=== PATIENT | female | born 1965 | race Caucasian/White ===

== ENCOUNTER 2017-03-23 05:59 | Observation (INO) ==
--- NOTE | 2017-03-23 06:30 | Emergency Department Note ---
Disposition Clinical Impression: Chest pain Qualifiers: Chest pain type: unspecified Qualified Code(s): R07.9 - Chest pain, unspecified Syncope Qualifiers: Syncope type: unspecified Qualified Code(s): R55 - Syncope and collapse Disposition: Still a Patient Condition: Fair Referrals: Suzanne Vincent CNP [Primary Care Provider] - Forms: ED Satisfaction Letter Chest Pain HPI - General Chief Complaint: ED Chest Pain Stated Complaint: CP, decreased LOC Time Seen by Provider: 03/23/17 06:03 Source: patient, EMS Mode of arrival: EMS Limitations: no limitations, altered mental status Vital Signs Reviewed: Yes Nursing Notes Reviewed: Yes - History of Present Illness HPI Narrative: 52-year-old female presents via EMS for concerns of syncope as well as chest pain. Patient states that she was working. EMS provided the history stating that the patient had a presumed witnessed collapse. Patient was complaining of chest pain around the time of the collapse. It was unclear whether the patient' s pain was prior to passing out or following passing out. Patient reports substernal chest pressure with radiation to her left arm. No pleuritic component. No diaphoresis. No vomiting. Patient states she had the stomach flu over the past couple days. Patient does have a remote history of breast cancer. No active cancers. No history of DVTs or PEs. Patient denies any abdominal pain. Patient denies history of syncope. Concerns of the patient is confused and not acting appropriately. Patient also reports a headache. Denies any extremity weaknesses or change in sensation. Severity scale (1-10): 7 - Related Data Home Medications Medication Instructions Recorded Confirmed Naproxen Sodium [Aleve] 220 mg PO BID PRN 05/02/16 12/13/16 Previous Rx's Medication Instructions Recorded HYDROcodone/Acet 5/325 mg [[place] 1 tab PO Q6H PRN #20 tab 12/13/16 5-325 mg] Allergies Allergy/AdvReac Type Severity Reaction Status Date / Time nitroglycerin Allergy See Verified 12/13/16 09:33 Comments citalopram AdvReac Nausea Verified 12/13/16 09:33 prednisone AdvReac See Verified 12/13/16 09:33 Comments All systems ED: reviewed and negative except as stated. Constitutional: Reports: as per HPI. Denies: fever Eyes: Reports: as per HPI ENT ED: Reports: as per HPI Cardiovascular: Reports: as per HPI, chest pain Respiratory: Reports: as per HPI. Denies: cough, dyspnea, sputum production Gastrointestinal: Reports: as per HPI. Denies: abdominal pain, nausea, vomiting Genitourinary: Reports: as per HPI Musculoskeletal: Reports: as per HPI Integumentary: Reports: as per HPI Neurological: Reports: as per HPI Psychiatric: Reports: as per HPI Endocrine: Reports: as per HPI Hematological/Lymphatic: Reports: as per HPI Chest Pain PMH - Past Medical History Medical history: Reports: other Surgical history: Reports: appendectomy, breast surgery, cholecystectomy, hysterectomy Psychiatric history: Reports: no psych history - Social History Smoking Status: Never smoker Alcohol use: Reports: none Drug use: Reports: none Physical Exam - General Limitations: no limitations General appearance: alert, in no apparent distress - Head Head exam: atraumatic, normocephalic, normal inspection - Eye Eye exam: Present: normal appearance, PERRL, EOMI - ENT ENT exam: normal exam, normal oropharynx, mucous membranes moist - Neck Neck exam: Present: normal inspection, trachea midline - Chest Chest inspection: Present: normal inspection, symmetric chest wall rise - Respiratory Respiratory exam: Present: normal lung sounds bilaterally. Absent: respiratory distress - Cardiovascular Cardiovascular exam: Present: regular rate, normal rhythm. Absent: systolic murmur - Abdominal Exam Abdominal exam: Present: soft, Non-Tender - Extremities Exam Extremities exam: Present: normal inspection. Absent: pedal edema - Back Exam Back exam: Present: normal inspection. Absent: tenderness - Neurological Exam Neurological exam: Present: alert, CN II-XII intact. Absent: motor sensory deficit - Expanded Neurological Exam Patient oriented to: Present: person, place. Absent: time Speech: Present: fluid speech Cranial nerves: EOM function (II, III, IV, ): Normal, facial sensation (V): Normal, facial palsy (VII): Normal, spinal accessory function (XI): Normal, tongue deviation (XII): Normal Motor strength - LUE: 5/5 Motor strength - RUE: 5/5 Motor strength - LLE: 5/5 Motor strength - RLE: 5/5 Coma Scale Eye Opening: Spontaneous Coma Scale Motor Response: Obeys Commands Coma Scale Verbal Response: Confused Coma Scale Total: 14 - Skin Skin exam: Present: warm, dry, intact, normal color Course Course Narrative: Patient seen and examined upon EMS arrival. Patient complaining of chest pain. Patient does have a history concerning for syncope. Patient does have remote history of breast cancer. Patient will get a cardiopulmonary evaluation with EKG, chest x-ray as well as urine and urine drug screen. Patient will also get a d-dimer given the history of breast cancer and question of syncopal episode. Patient will be given aspirin following neuro imaging to ensure that there is no cranial bleeding. Patient will also require admission for further cardiopulmonary monitoring and evaluation. Vital Signs Temperature 98.2 F 03/23/17 05:59 Pulse Rate 91 03/23/17 05:59 Respiratory Rate 20 03/23/17 05:59 Blood Pressure 137/94 03/23/17 05:59 O2 Sat by Pulse Oximetry 97 03/23/17 05:59 Temperature 98.2 F 03/23/17 05:59 Pulse Rate 91 03/23/17 05:59 Respiratory Rate 20 03/23/17 05:59 Blood Pressure 137/94 03/23/17 05:59 O2 Sat by Pulse Oximetry 97 03/23/17 05:59 Oxygen Delivery Oxygen Delivery Room Air Chest Pain - Lab Data Result diagrams: 03/23/17 06:05 03/23/17 06:05 Lab Results 03/23/17 03/23/17 03/23/17 Range/Units 06:03 06:05 06:05 WBC 6.1 (4.3-11.1) K/mcL RBC 5.26 H (3.82-4.97) M/mcL Hgb 14.1 (11.5-15.4) g/dL Hct 43.3 (35.3-44.9) % MCV 82.3 L (83.0-100.0) fL MCH 26.8 L (28.0-33.3) pg MCHC 32.6 (31.6-35.5) g/dL RDW 15.4 H (11.5-14.5) % Plt Count 321 (140-400) K/mcL MPV 9.9 (9.4-12.4) fL Immature Gran % 0.2 (0-4) % Seg Neutrophils % 46.9 % Lymphocytes % 28.9 % Monocytes % 10.8 % Eosinophils % 11.2 % Basophils % 2.0 % Neutrophils # 2.9 (1.6-8.9) K/mcL Lymphocytes # 1.8 (0.6-4.6) K/mcL Monocytes # 0.7 (0.0-1.3) K/mcL Eosinophils # 0.7 H (0.0-0.6) K/mcL Basophils # 0.1 (0.0-0.2) K/mcL Sodium 137 (136-145) mEq/L Potassium 3.8 (3.5-5.1) mEq/L Chloride 104 (98-107) mEq/L Carbon Dioxide 25 (23-29) mEq/L BUN 15 (6-20) mg/dL Creatinine 0.89 (0.60-1.20) mg/dL Est GFR ( Amer) > 60 (> 60) Est GFR (Non-Af Amer) > 60 (> 60) BUN/Creatinine Ratio 17 (6-26) Glucose 87 (70-105) mg/dL POC Glucose 96 H (58-89) Calculated Osmolality 284 (280-300) Calcium 10.2 (8.6-10.3) mg/dL Troponin I (< 0.04) ng/mL B-Natriuretic Peptide (Less than 100) pg/mL Urine Color (Yellow) Urine Clarity (Clear) Urine pH (5.0-8.0) pH Units Ur Specific [place] (1.010-1.025) Urine Protein (Neg-Trace) mg/dL Urine Glucose (UA) (Normal) mg/dL Urine Ketones (Negative) mg/dL Urine Blood (Negative) Urine Nitrite (Negative) Urine Bilirubin (Negative) Urine Urobilinogen (Normal) mg/dL Ur Leukocyte Esterase (Negative) Urine Microscopic RBC (0-3) per hpf Urine Microscopic WBC (0-3) per hpf Ur Squamous Epith Cells (None-Few) per lpf Urine Bacteria (None-Few) per hpf Hyaline Casts (None-Few) per lpf Urine Opiates Screen (Bpjdua=839) ng/mL Ur Barbiturates Screen (Ttcgjg=301) ng/mL Ur Phencyclidine Scrn (Cutoff=25) ng/mL Ur Amphetamines Screen (Ayxuqs=0147) ng/mL U Benzodiazepines Scrn (Bsusxm=794) ng/mL Urine Cocaine Screen (Cutoff= 300) ng/mL U Marijuana (THC) Screen (Cutoff = 50) ng/mL 0103/23/17 03/23/17 Range/Units 06:05 06:05 06:34 WBC (4.3-11.1) K/mcL RBC (3.82-4.97) M/mcL Hgb (11.5-15.4) g/dL Hct (35.3-44.9) % MCV (83.0-100.0) fL MCH (28.0-33.3) pg MCHC (31.6-35.5) g/dL RDW (11.5-14.5) % Plt Count (140-400) K/mcL MPV (9.4-12.4) fL Immature Gran % (0-4) % Seg Neutrophils % % Lymphocytes % % Monocytes % % Eosinophils % % Basophils % % Neutrophils # (1.6-8.9) K/mcL Lymphocytes # (0.6-4.6) K/mcL Monocytes # (0.0-1.3) K/mcL Eosinophils # (0.0-0.6) K/mcL Basophils # (0.0-0.2) K/mcL Sodium (136-145) mEq/L Potassium (3.5-5.1) mEq/L Chloride (98-107) mEq/L Carbon Dioxide (23-29) mEq/L BUN (6-20) mg/dL Creatinine (0.60-1.20) mg/dL Est GFR ( Amer) (> 60) Est GFR (Non-Af Amer) (> 60) BUN/Creatinine Ratio (6-26) Glucose (70-105) mg/dL POC Glucose (58-89) Calculated Osmolality (280-300) Calcium (8.6-10.3) mg/dL Troponin I < 0.03 (< 0.04) ng/mL B-Natriuretic Peptide 26 (Less than 100) pg/mL Urine Color (Yellow) Urine Clarity (Clear) Urine pH (5.0-8.0) pH Units Ur Specific [place] (1.010-1.025) Urine Protein (Neg-Trace) mg/dL Urine Glucose (UA) (Normal) mg/dL Urine Ketones (Negative) mg/dL Urine Blood (Negative) Urine Nitrite (Negative) Urine Bilirubin (Negative) Urine Urobilinogen (Normal) mg/dL Ur Leukocyte Esterase (Negative) Urine Microscopic RBC (0-3) per hpf Urine Microscopic WBC (0-3) per hpf Ur Squamous Epith Cells (None-Few) per lpf Urine Bacteria (None-Few) per hpf Hyaline Casts (None-Few) per lpf Urine Opiates Screen Negative (Ercmcq=408) ng/mL Ur Barbiturates Screen Negative (Ofluhe=605) ng/mL Ur Phencyclidine Scrn Negative (Cutoff=25) ng/mL Ur Amphetamines Screen Negative (Sgzerw=7251) ng/mL U Benzodiazepines Scrn Negative (Uvsymp=853) ng/mL Urine Cocaine Screen Negative (Cutoff= 300) ng/mL U Marijuana (THC) Screen Negative (Cutoff = 50) ng/mL 03/23/17 Range/Units 06:34 WBC (4.3-11.1) K/mcL RBC (3.82-4.97) M/mcL Hgb (11.5-15.4) g/dL Hct (35.3-44.9) % MCV (83.0-100.0) fL MCH (28.0-33.3) pg MCHC (31.6-35.5) g/dL RDW (11.5-14.5) % Plt Count (140-400) K/mcL MPV (9.4-12.4) fL Immature Gran % (0-4) % Seg Neutrophils % % Lymphocytes % % Monocytes % % Eosinophils % % Basophils % % Neutrophils # (1.6-8.9) K/mcL Lymphocytes # (0.6-4.6) K/mcL Monocytes # (0.0-1.3) K/mcL Eosinophils # (0.0-0.6) K/mcL Basophils # (0.0-0.2) K/mcL Sodium (136-145) mEq/L Potassium (3.5-5.1) mEq/L Chloride (98-107) mEq/L Carbon Dioxide (23-29) mEq/L BUN (6-20) mg/dL Creatinine (0.60-1.20) mg/dL Est GFR ( Amer) (> 60) Est GFR (Non-Af Amer) (> 60) BUN/Creatinine Ratio (6-26) Glucose (70-105) mg/dL POC Glucose (58-89) Calculated Osmolality (280-300) Calcium (8.6-10.3) mg/dL Troponin I (< 0.04) ng/mL B-Natriuretic Peptide (Less than 100) pg/mL Urine Color Yellow (Yellow) Urine Clarity Cloudy A (Clear) Urine pH 7.0 (5.0-8.0) pH Units Ur Specific [place] 1.009 L (1.010-1.025) Urine Protein Negative (Neg-Trace) mg/dL Urine Glucose (UA) Normal (Normal) mg/dL Urine Ketones Negative (Negative) mg/dL Urine Blood Negative (Negative) Urine Nitrite Negative (Negative) Urine Bilirubin Negative (Negative) Urine Urobilinogen Normal (Normal) mg/dL Ur Leukocyte Esterase Moderate H (Negative) Urine Microscopic RBC 0-3 (0-3) per hpf Urine Microscopic WBC 15-30 H (0-3) per hpf Ur Squamous Epith Cells Many H (None-Few) per lpf Urine Bacteria Few (None-Few) per hpf Hyaline Casts None Seen (None-Few) per lpf Urine Opiates Screen (Kkpaik=957) ng/mL Ur Barbiturates Screen (Znnqaw=966) ng/mL Ur Phencyclidine Scrn (Cutoff=25) ng/mL Ur Amphetamines Screen (Krppyn=2311) ng/mL U Benzodiazepines Scrn (Nmmgcx=793) ng/mL Urine Cocaine Screen (Cutoff= 300) ng/mL U Marijuana (THC) Screen (Cutoff = 50) ng/mL - EKG Data EKG attestation: Yes I reviewed and interpreted this EKG. EKG shows normal: sinus rhythm Rate: normal Rhythm: NSR [place]/QRS: normal Q waves: III, aVR T wave inversions noted in: aVR, v1 Interpretation: no acute changes, unchanged when compared to prior tracing (date ) S.B.A.R. - S.B.A.RMilli Situation: Demographics Background: Presenting Complaint Assessment: Vital Signs, Course and respsone to treatment, Patient/Family Expectation Recommendation: Barrier(s) to disposition, Recommendation based on pending studies, treatments, or consults S.B.A.R. Report Given to: Dr. Melissa HudsonB.AKeenan Repor Time: 07:00 Attestation Statement - Attestation Attestation: I, Ramiro Morse MD, personally evaluated this patient and discussed their management with the resident physician. I reviewed the resident's note and agree with the documented findings, medical decision making, and plan of care. 52-year-old female presents to the emergency department by ambulance after she had an episode of syncope and collapse while at work just prior to arrival. Patient apparently developed some chest pain and then collapsed and was unresponsive. Since then she has been confused and disoriented and not acting right. She does complain of headache. She does not really remember the syncopal episode. Patient is very slow to respond and keeps her eyes closed and will not make eye contact. She answers some questions appropriately but then asked what is going on and where she had. She continues to complain of some mid substernal chest pain which she describes as sharp and stabbing like a knife in it hurts worse to breathe. She complains of feeling short of breath. On examination patient is a well-developed well-nourished well-appearing female in no acute distress. She is alert but seems mildly confused. No cyanosis or diaphoresis. Some tenderness palpation over the anterior chest wall. Breath sounds are clear and equal bilaterally. Heart regular rate and rhythm. Abdomen soft and nontender with normal bowel sounds. No gross focal motor or sensory deficits noted. EKG normal. Labs, chest x-ray, and head CT ordered. At shift change patient is being signed out to the oncoming dayshift team, Dr. Torres and Dr. Jack.
[2017-03-23 06:35] LABS: Basophils # 0.1 K/mcL (0.0-0.2); Eosinophils # 0.7 K/mcL (0.0-0.6); Eosinophils % 11.2 %; Hematocrit 43.3 % (35.3-44.9); Hemoglobin 14.1 g/dL (11.5-15.4); Immature Granulocytes % 0.2 % (0-4); Lymphocytes # 1.8 K/mcL (0.6-4.6); Lymphocytes % 28.9 %; Mean Corpuscular HGB Conc 32.6 g/dL (31.6-35.5); Mean Corpuscular Hemoglobin 26.8 pg (28.0-33.3); Mean Corpuscular Volume 82.3 fL (83.0-100.0); Mean Platelet Volume 9.9 fL (9.4-12.4); Monocytes # 0.7 K/mcL (0.0-1.3); Monocytes % 10.8 %; Neutrophils # 2.9 K/mcL (1.6-8.9); Platelet Count 321 K/mcL (140-400); Red Blood Count 5.26 M/mcL (3.82-4.97); Red Cell Distribution Width 15.4 % (11.5-14.5); Segmented Neutrophils % 46.9 %
[2017-03-23 06:36] LABS: BUN/Creatinine Ratio 17 (6-26); Blood Urea Nitrogen 15 mg/dL (6-20); Calcium 10.2 mg/dL (8.6-10.3); Carbon Dioxide 25 mEq/L (23-29); Chloride 104 mEq/L (98-107); Glucose 87 mg/dL (70-105); Osmolality,Calculated 284 (280-300); Potassium 3.8 mEq/L (3.5-5.1); Sodium 137 mEq/L (136-145); eGFR For African Americans > 60 (> 60); eGFR For Non-African Americans > 60 (> 60)
[2017-03-23 06:46] LABS: Bilirubin,Urine Negative (Negative); Blood,Urine Negative (Negative); Clarity,Urine Cloudy (Clear); Color,Urine Yellow (Yellow); Glucose,Urine (UA) Normal (Normal); Ketones,Urine Negative (Negative); Leukocyte Esterase,Urine Moderate (Negative); Nitrite,Urine Negative (Negative); Protein,Urine Negative (Neg-Trace); Specific Gravity,Urine 1.009 (1.010-1.025); Urobilinogen,Urine Normal (Normal)
[2017-03-23 06:48] LABS: Amphetamine Screen,Urine Negative ng/mL (Cutoff=1000); Bacteria,Urine Few per hpf (None-Few); Barbiturate Screen,Urine Negative ng/mL (Cutoff=200); Benzodiazepines Screen,Urine Negative ng/mL (Cutoff=200); Cannabinoid Screen,Urine Negative ng/mL (Cutoff = 50); Cocaine Screen,Urine Negative ng/mL (Cutoff= 300); Hyaline Casts,Urine None Seen per lpf (None-Few); Opiate Screen,Urine Negative ng/mL (Cutoff=300); Phencyclidine Screen,Urine Negative ng/mL (Cutoff=25); RBC,Urine 0-3 per hpf (0-3); Squamous Epithelial Cell,Urine Many per lpf (None-Few); WBC,Urine 15-30 per hpf (0-3)
--- NOTE | 2017-03-23 07:13 | Emergency Department Note ---
Disposition Clinical Impression: Chest pain Qualifiers: Chest pain type: unspecified Qualified Code(s): R07.9 - Chest pain, unspecified Syncope Qualifiers: Syncope type: unspecified Qualified Code(s): R55 - Syncope and collapse Disposition: Still a Patient Condition: Fair Referrals: Suzanne Vincent CNP [Primary Care Provider] - Forms: ED Satisfaction Letter General Adult HPI - General Chief complaint: ED Chest Pain Stated complaint: CP, decreased LOC Time Seen by Provider: 03/23/17 06:03 Source: patient, EMS Mode of arrival: EMS Limitations: no limitations - History of Present Illness Pain Scale: 7 - Related Data Home Medications Medication Instructions Recorded Confirmed Naproxen Sodium [Aleve] 220 mg PO BID PRN 05/02/16 12/13/16 Previous Rx's Medication Instructions Recorded HYDROcodone/Acet 5/325 mg [[place] 1 tab PO Q6H PRN #20 tab 12/13/16 5-325 mg] Allergies Allergy/AdvReac Type Severity Reaction Status Date / Time nitroglycerin Allergy See Verified 12/13/16 09:33 Comments citalopram AdvReac Nausea Verified 12/13/16 09:33 prednisone AdvReac See Verified 12/13/16 09:33 Comments Constitutional: Reports: as per HPI. Denies: fever Eyes: Reports: as per HPI ENT ED: Reports: as per HPI Cardiovascular: Reports: as per HPI, chest pain Respiratory: Reports: as per HPI. Denies: cough, dyspnea, sputum production Gastrointestinal: Reports: as per HPI. Denies: abdominal pain, nausea, vomiting Genitourinary: Reports: as per HPI Musculoskeletal: Reports: as per HPI Integumentary: Reports: as per HPI Neurological: Reports: as per HPI Psychiatric: Reports: as per HPI Endocrine: Reports: as per HPI Hematological/Lymphatic: Reports: as per HPI Past Medical History - Past Medical History Medical history: Reports: other Surgical history: Reports: appendectomy, breast surgery, cholecystectomy, hysterectomy Psychiatric history: Reports: no psych history - Social History Smoking Status: Never smoker Smokeless Tobacco Status: No Alcohol use: Reports: none Drug use: Reports: none Physical Exam - General Limitations: no limitations General appearance: alert, in no apparent distress Course Vital Signs Temperature 98.2 F 03/23/17 05:59 Pulse Rate 91 03/23/17 05:59 Respiratory Rate 20 03/23/17 05:59 Blood Pressure 137/94 03/23/17 05:59 O2 Sat by Pulse Oximetry 97 03/23/17 05:59 Temperature 98.2 F 03/23/17 05:59 Pulse Rate 91 03/23/17 05:59 Respiratory Rate 20 03/23/17 05:59 Blood Pressure 137/94 03/23/17 05:59 O2 Sat by Pulse Oximetry 97 03/23/17 05:59 Oxygen Delivery Oxygen Delivery Room Air Medical Decision Making - Lab Data Result diagrams: 03/23/17 06:05 03/23/17 06:05 Lab Results 03/23/17 03/23/17 03/23/17 Range/Units 06:03 06:05 06:05 WBC 6.1 (4.3-11.1) K/mcL RBC 5.26 H (3.82-4.97) M/mcL Hgb 14.1 (11.5-15.4) g/dL Hct 43.3 (35.3-44.9) % MCV 82.3 L (83.0-100.0) fL MCH 26.8 L (28.0-33.3) pg MCHC 32.6 (31.6-35.5) g/dL RDW 15.4 H (11.5-14.5) % Plt Count 321 (140-400) K/mcL MPV 9.9 (9.4-12.4) fL Immature Gran % 0.2 (0-4) % Seg Neutrophils % 46.9 % Lymphocytes % 28.9 % Monocytes % 10.8 % Eosinophils % 11.2 % Basophils % 2.0 % Neutrophils # 2.9 (1.6-8.9) K/mcL Lymphocytes # 1.8 (0.6-4.6) K/mcL Monocytes # 0.7 (0.0-1.3) K/mcL Eosinophils # 0.7 H (0.0-0.6) K/mcL Basophils # 0.1 (0.0-0.2) K/mcL D-Dimer (0-500) ng/mLFEU Sodium 137 (136-145) mEq/L Potassium 3.8 (3.5-5.1) mEq/L Chloride 104 (98-107) mEq/L Carbon Dioxide 25 (23-29) mEq/L BUN 15 (6-20) mg/dL Creatinine 0.89 (0.60-1.20) mg/dL Est GFR ( Amer) > 60 (> 60) Est GFR (Non-Af Amer) > 60 (> 60) BUN/Creatinine Ratio 17 (6-26) Glucose 87 (70-105) mg/dL POC Glucose 96 H (58-89) Calculated Osmolality 284 (280-300) Calcium 10.2 (8.6-10.3) mg/dL Troponin I (< 0.04) ng/mL B-Natriuretic Peptide (Less than 100) pg/mL Urine Color (Yellow) Urine Clarity (Clear) Urine pH (5.0-8.0) pH Units Ur Specific [place] (1.010-1.025) Urine Protein (Neg-Trace) mg/dL Urine Glucose (UA) (Normal) mg/dL Urine Ketones (Negative) mg/dL Urine Blood (Negative) Urine Nitrite (Negative) Urine Bilirubin (Negative) Urine Urobilinogen (Normal) mg/dL Ur Leukocyte Esterase (Negative) Urine Microscopic RBC (0-3) per hpf Urine Microscopic WBC (0-3) per hpf Ur Squamous Epith Cells (None-Few) per lpf Urine Bacteria (None-Few) per hpf Hyaline Casts (None-Few) per lpf Urine Opiates Screen (Vbpciz=704) ng/mL Ur Barbiturates Screen (Cggzmb=144) ng/mL Ur Phencyclidine Scrn (Cutoff=25) ng/mL Ur Amphetamines Screen (Jomjnc=5586) ng/mL U Benzodiazepines Scrn (Nkvrfu=314) ng/mL Urine Cocaine Screen (Cutoff= 300) ng/mL U Marijuana (THC) Screen (Cutoff = 50) ng/mL 03/23/17 03/23/17 03/23/17 Range/Units 06:05 06:05 06:05 WBC (4.3-11.1) K/mcL RBC (3.82-4.97) M/mcL Hgb (11.5-15.4) g/dL Hct (35.3-44.9) % MCV (83.0-100.0) fL MCH (28.0-33.3) pg MCHC (31.6-35.5) g/dL RDW (11.5-14.5) % Plt Count (140-400) K/mcL MPV (9.4-12.4) fL Immature Gran % (0-4) % Seg Neutrophils % % Lymphocytes % % Monocytes % % Eosinophils % % Basophils % % Neutrophils # (1.6-8.9) K/mcL Lymphocytes # (0.6-4.6) K/mcL Monocytes # (0.0-1.3) K/mcL Eosinophils # (0.0-0.6) K/mcL Basophils # (0.0-0.2) K/mcL D-Dimer 729 H (0-500) ng/mLFEU Sodium (136-145) mEq/L Potassium (3.5-5.1) mEq/L Chloride (98-107) mEq/L Carbon Dioxide (23-29) mEq/L BUN (6-20) mg/dL Creatinine (0.60-1.20) mg/dL Est GFR ( Amer) (> 60) Est GFR (Non-Af Amer) (> 60) BUN/Creatinine Ratio (6-26) Glucose (70-105) mg/dL POC Glucose (58-89) Calculated Osmolality (280-300) Calcium (8.6-10.3) mg/dL Troponin I < 0.03 (< 0.04) ng/mL B-Natriuretic Peptide 26 (Less than 100) pg/mL Urine Color (Yellow) Urine Clarity (Clear) Urine pH (5.0-8.0) pH Units Ur Specific [place] (1.010-1.025) Urine Protein (Neg-Trace) mg/dL Urine Glucose (UA) (Normal) mg/dL Urine Ketones (Negative) mg/dL Urine Blood (Negative) Urine Nitrite (Negative) Urine Bilirubin (Negative) Urine Urobilinogen (Normal) mg/dL Ur Leukocyte Esterase (Negative) Urine Microscopic RBC (0-3) per hpf Urine Microscopic WBC (0-3) per hpf Ur Squamous Epith Cells (None-Few) per lpf Urine Bacteria (None-Few) per hpf Hyaline Casts (None-Few) per lpf Urine Opiates Screen (Liyhdi=539) ng/mL Ur Barbiturates Screen ([place]=865) ng/mL Ur Phencyclidine Scrn (Cutoff=25) ng/mL Ur Amphetamines Screen (Tfavnx=4424) ng/mL U Benzodiazepines Scrn (Tmnwex=528) ng/mL Urine Cocaine Screen (Cutoff= 300) ng/mL U Marijuana (THC) Screen (Cutoff = 50) ng/mL 03/23/17 03/23/17 Range/Units 06:34 06:34 WBC (4.3-11.1) K/mcL RBC (3.82-4.97) M/mcL Hgb (11.5-15.4) g/dL Hct (35.3-44.9) % MCV (83.0-100.0) fL MCH (28.0-33.3) pg MCHC (31.6-35.5) g/dL RDW (11.5-14.5) % Plt Count (140-400) K/mcL MPV (9.4-12.4) fL Immature Gran % (0-4) % Seg Neutrophils % % Lymphocytes % % Monocytes % % Eosinophils % % Basophils % % Neutrophils # (1.6-8.9) K/mcL Lymphocytes # (0.6-4.6) K/mcL Monocytes # (0.0-1.3) K/mcL Eosinophils # (0.0-0.6) K/mcL Basophils # (0.0-0.2) K/mcL D-Dimer (0-500) ng/mLFEU Sodium (136-145) mEq/L Potassium (3.5-5.1) mEq/L Chloride (98-107) mEq/L Carbon Dioxide (23-29) mEq/L BUN (6-20) mg/dL Creatinine (0.60-1.20) mg/dL Est GFR ( Amer) (> 60) Est GFR (Non-Af Amer) (> 60) BUN/Creatinine Ratio (6-26) Glucose (70-105) mg/dL POC Glucose (58-89) Calculated Osmolality (280-300) Calcium (8.6-10.3) mg/dL Troponin I (< 0.04) ng/mL B-Natriuretic Peptide (Less than 100) pg/mL Urine Color Yellow (Yellow) Urine Clarity Cloudy A (Clear) Urine pH 7.0 (5.0-8.0) pH Units Ur Specific [place] 1.009 L (1.010-1.025) Urine Protein Negative (Neg-Trace) mg/dL Urine Glucose (UA) Normal (Normal) mg/dL Urine Ketones Negative (Negative) mg/dL Urine Blood Negative (Negative) Urine Nitrite Negative (Negative) Urine Bilirubin Negative (Negative) Urine Urobilinogen Normal (Normal) mg/dL Ur Leukocyte Esterase Moderate H (Negative) Urine Microscopic RBC 0-3 (0-3) per hpf Urine Microscopic WBC 15-30 H (0-3) per hpf Ur Squamous Epith Cells Many H (None-Few) per lpf Urine Bacteria Few (None-Few) per hpf Hyaline Casts None Seen (None-Few) per lpf Urine Opiates Screen Negative (Nlnzfo=584) ng/mL Ur Barbiturates Screen Negative (Ctsbei=770) ng/mL Ur Phencyclidine Scrn Negative (Cutoff=25) ng/mL Ur Amphetamines Screen Negative (Mfywlv=0657) ng/mL U Benzodiazepines Scrn Negative (Zjsnkz=788) ng/mL Urine Cocaine Screen Negative (Cutoff= 300) ng/mL U Marijuana (THC) Screen Negative (Cutoff = 50) ng/mL Attestation Statement - Attestation Attestation: Care assumed from Dr. Morse at [address] head, CT chest, reevaluation. The patient presents after a syncopal event at work. She is now confused. She is calm appearing on exam but states "where am I?" Labs reviewed by me. CT head and chest pending. Patient will likely require admission for observation and evaluation
--- NOTE | 2017-03-23 08:01 | Emergency Department Note ---
Disposition Clinical Impression: Chest pain Qualifiers: Chest pain type: unspecified Qualified Code(s): R07.9 - Chest pain, unspecified Syncope Qualifiers: Syncope type: unspecified Qualified Code(s): R55 - Syncope and collapse Disposition: Admitted As Inpatient Condition: Fair Referrals: Suzanne Vincent [facility] [Primary Care Provider] - Forms: ED Satisfaction Letter Time of Disposition: 08:27 General Adult HPI - General Chief complaint: ED Chest Pain Stated complaint: CP, decreased LOC Time Seen by Provider: 03/23/17 06:03 Source: patient, EMS Mode of arrival: EMS Limitations: no limitations - History of Present Illness Pain Scale: 10 - Related Data Home Medications Medication Instructions Recorded Confirmed No Known Home Drugs 03/23/17 03/23/17 Allergies Allergy/AdvReac Type Severity Reaction Status Date / Time nitroglycerin Allergy See Verified 12/13/16 09:33 Comments citalopram AdvReac Nausea Verified 12/13/16 09:33 prednisone AdvReac See Verified 12/13/16 09:33 Comments Constitutional: Reports: as per HPI. Denies: fever Eyes: Reports: as per HPI ENT ED: Reports: as per HPI Cardiovascular: Reports: as per HPI, chest pain Respiratory: Reports: as per HPI. Denies: cough, dyspnea, sputum production Gastrointestinal: Reports: as per HPI. Denies: abdominal pain, nausea, vomiting Genitourinary: Reports: as per HPI Musculoskeletal: Reports: as per HPI Integumentary: Reports: as per HPI Neurological: Reports: as per HPI Psychiatric: Reports: as per HPI Endocrine: Reports: as per HPI Hematological/Lymphatic: Reports: as per HPI Past Medical History - Past Medical History Medical history: Reports: other Surgical history: Reports: appendectomy, breast surgery, cholecystectomy, hysterectomy Psychiatric history: Reports: no psych history - Social History Smoking Status: Never smoker Smokeless Tobacco Status: No Alcohol use: Reports: none Drug use: Reports: none Physical Exam - General Limitations: no limitations General appearance: alert, in no apparent distress Course Course Narrative: Briefly patient care was signed out to the day physicians Dr. Torres and Dr. Guero Baez and Dr. Morse, the patient with an episode of syncope at work, unexplained and now since then she has been acting differently per her sister is at bedside, please see their documentation, had additional lab work she has had elevated d-dimer 700 so we will give a CT chest also pain head CT plan for admission for chest pain syncope - Reevaluation(s) Reevaluation #1: Hospitalist paged Time: 08:01 Reevaluation #2: Patient admitted a hospitalist Dr. Barahona added seizure precautions, patient given an aspirin no clear cause of syncope CT chest negative CT head negative, patient likely needs MRI imaging, she still not quite at her baseline but slightly more lucid than described by the night physicians, again see their documentation for history and physical exam patient be admitted for CV and chest pain, is currently chest pain-free with no ischemic changes on her EKG Time: 08:27 Vital Signs Temperature 98.2 F 03/23/17 05:59 Pulse Rate 91 03/23/17 05:59 Respiratory Rate 20 03/23/17 05:59 Blood Pressure 137/94 03/23/17 05:59 O2 Sat by Pulse Oximetry 97 03/23/17 05:59 Temperature 98.2 F 03/23/17 05:59 Pulse Rate 99 03/23/17 08:17 Respiratory Rate 17 03/23/17 08:17 Blood Pressure 120/87 03/23/17 08:17 O2 Sat by Pulse Oximetry 97 03/23/17 08:17 Oxygen Delivery Oxygen Delivery Room Air Medical Decision Making - Medical Records Medical records reviewed: Yes I reviewed the patient's medical records. - Lab Data Lab results reviewed: Yes I reviewed the patient's lab results. Result diagrams: 03/23/17 06:05 03/23/17 06:05 Lab Results 03/23/17 03/23/17 03/23/17 Range/Units 06:03 06:05 06:05 WBC 6.1 (4.3-11.1) K/mcL RBC 5.26 H (3.82-4.97) M/mcL Hgb 14.1 (11.5-15.4) g/dL Hct 43.3 (35.3-44.9) % MCV 82.3 L (83.0-100.0) fL MCH 26.8 L (28.0-33.3) pg MCHC 32.6 (31.6-35.5) g/dL RDW 15.4 H (11.5-14.5) % Plt Count 321 (140-400) K/mcL MPV 9.9 (9.4-12.4) fL Immature Gran % 0.2 (0-4) % Seg Neutrophils % 46.9 % Lymphocytes % 28.9 % Monocytes % 10.8 % Eosinophils % 11.2 % Basophils % 2.0 % Neutrophils # 2.9 (1.6-8.9) K/mcL Lymphocytes # 1.8 (0.6-4.6) K/mcL Monocytes # 0.7 (0.0-1.3) K/mcL Eosinophils # 0.7 H (0.0-0.6) K/mcL Basophils # 0.1 (0.0-0.2) K/mcL D-Dimer (0-500) ng/mLFEU Carboxyhemoglobin (0-5) % Sodium 137 (136-145) mEq/L Potassium 3.8 (3.5-5.1) mEq/L Chloride 104 (98-107) mEq/L Carbon Dioxide 25 (23-29) mEq/L BUN 15 (6-20) mg/dL Creatinine 0.89 (0.60-1.20) mg/dL Est GFR ( Amer) > 60 (> 60) Est GFR (Non-Af Amer) > 60 (> 60) BUN/Creatinine Ratio 17 (6-26) Glucose 87 (70-105) mg/dL POC Glucose 96 H (58-89) Calculated Osmolality 284 (280-300) Calcium 10.2 (8.6-10.3) mg/dL Troponin I (< 0.04) ng/mL B-Natriuretic Peptide (Less than 100) pg/mL Urine Color (Yellow) Urine Clarity (Clear) Urine pH (5.0-8.0) pH Units Ur Specific [place] (1.010-1.025) Urine Protein (Neg-Trace) mg/dL Urine Glucose (UA) (Normal) mg/dL Urine Ketones (Negative) mg/dL Urine Blood (Negative) Urine Nitrite (Negative) Urine Bilirubin (Negative) Urine Urobilinogen (Normal) mg/dL Ur Leukocyte Esterase (Negative) Urine Microscopic RBC (0-3) per hpf Urine Microscopic WBC (0-3) per hpf Ur Squamous Epith Cells (None-Few) per lpf Urine Bacteria (None-Few) per hpf Hyaline Casts (None-Few) per lpf Urine Opiates Screen (Wpimao=152) ng/mL Ur Barbiturates Screen (Krkygd=416) ng/mL Ur Phencyclidine Scrn (Cutoff=25) ng/mL Ur Amphetamines Screen (Khskue=8805) ng/mL U Benzodiazepines Scrn (Rmhbwc=580) ng/mL Urine Cocaine Screen (Cutoff= 300) ng/mL U Marijuana (THC) Screen (Cutoff = 50) ng/mL 03/23/17 03/23/17 03/23/17 Range/Units 06:05 06:05 06:05 WBC (4.3-11.1) K/mcL RBC (3.82-4.97) M/mcL Hgb (11.5-15.4) g/dL Hct (35.3-44.9) % MCV (83.0-100.0) fL MCH (28.0-33.3) pg MCHC (31.6-35.5) g/dL RDW (11.5-14.5) % Plt Count (140-400) K/mcL MPV (9.4-12.4) fL Immature Gran % (0-4) % Seg Neutrophils % % Lymphocytes % % Monocytes % % Eosinophils % % Basophils % % Neutrophils # (1.6-8.9) K/mcL Lymphocytes # (0.6-4.6) K/mcL Monocytes # (0.0-1.3) K/mcL Eosinophils # (0.0-0.6) K/mcL Basophils # (0.0-0.2) K/mcL D-Dimer 729 H (0-500) ng/mLFEU Carboxyhemoglobin (0-5) % Sodium (136-145) mEq/L Potassium (3.5-5.1) mEq/L Chloride (98-107) mEq/L Carbon Dioxide (23-29) mEq/L BUN (6-20) mg/dL Creatinine (0.60-1.20) mg/dL Est GFR ( Amer) (> 60) Est GFR (Non-Af Amer) (> 60) BUN/Creatinine Ratio (6-26) Glucose (70-105) mg/dL POC Glucose (58-89) Calculated Osmolality (280-300) Calcium (8.6-10.3) mg/dL Troponin I < 0.03 (< 0.04) ng/mL B-Natriuretic Peptide 26 (Less than 100) pg/mL Urine Color (Yellow) Urine Clarity (Clear) Urine pH (5.0-8.0) pH Units Ur Specific [place] (1.010-1.025) Urine Protein (Neg-Trace) mg/dL Urine Glucose (UA) (Normal) mg/dL Urine Ketones (Negative) mg/dL Urine Blood (Negative) Urine Nitrite (Negative) Urine Bilirubin (Negative) Urine Urobilinogen (Normal) mg/dL Ur Leukocyte Esterase (Negative) Urine Microscopic RBC (0-3) per hpf Urine Microscopic WBC (0-3) per hpf Ur Squamous Epith Cells (None-Few) per lpf Urine Bacteria (None-Few) per hpf Hyaline Casts (None-Few) per lpf Urine Opiates Screen (Rmjmkl=447) ng/mL Ur Barbiturates Screen ([place]a=127) ng/mL Ur Phencyclidine Scrn (Cutoff=25) ng/mL Ur Amphetamines Screen (Zqkxqs=7249) ng/mL U Benzodiazepines Scrn (Efvdnn=349) ng/mL Urine Cocaine Screen (Cutoff= 300) ng/mL U Marijuana (THC) Screen (Cutoff = 50) ng/mL 03/23/17 03/23/17 03/23/17 Range/Units 06:34 06:34 08:01 WBC (4.3-11.1) K/mcL RBC (3.82-4.97) M/mcL Hgb (11.5-15.4) g/dL Hct (35.3-44.9) % MCV (83.0-100.0) fL MCH (28.0-33.3) pg MCHC (31.6-35.5) g/dL RDW (11.5-14.5) % Plt Count (140-400) K/mcL MPV (9.4-12.4) fL Immature Gran % (0-4) % Seg Neutrophils % % Lymphocytes % % Monocytes % % Eosinophils % % Basophils % % Neutrophils # (1.6-8.9) K/mcL Lymphocytes # (0.6-4.6) K/mcL Monocytes # (0.0-1.3) K/mcL Eosinophils # (0.0-0.6) K/mcL Basophils # (0.0-0.2) K/mcL D-Dimer (0-500) ng/mLFEU Carboxyhemoglobin 3.4 (0-5) % Sodium (136-145) mEq/L Potassium (3.5-5.1) mEq/L Chloride (98-107) mEq/L Carbon Dioxide (23-29) mEq/L BUN (6-20) mg/dL Creatinine (0.60-1.20) mg/dL Est GFR ( Amer) (> 60) Est GFR (Non-Af Amer) (> 60) BUN/Creatinine Ratio (6-26) Glucose (70-105) mg/dL POC Glucose (58-89) Calculated Osmolality (280-300) Calcium (8.6-10.3) mg/dL Troponin I (< 0.04) ng/mL B-Natriuretic Peptide (Less than 100) pg/mL Urine Color Yellow (Yellow) Urine Clarity Cloudy A (Clear) Urine pH 7.0 (5.0-8.0) pH Units Ur Specific [place] 1.009 L (1.010-1.025) Urine Protein Negative (Neg-Trace) mg/dL Urine Glucose (UA) Normal (Normal) mg/dL Urine Ketones Negative (Negative) mg/dL Urine Blood Negative (Negative) Urine Nitrite Negative (Negative) Urine Bilirubin Negative (Negative) Urine Urobilinogen Normal (Normal) mg/dL Ur Leukocyte Esterase Moderate H (Negative) Urine Microscopic RBC 0-3 (0-3) per hpf Urine Microscopic WBC 15-30 H (0-3) per hpf Ur Squamous Epith Cells Many H (None-Few) per lpf Urine Bacteria Few (None-Few) per hpf Hyaline Casts None Seen (None-Few) per lpf Urine Opiates Screen Negative (Ommwlq=604) ng/mL Ur Barbiturates Screen Negative ([place]ajaek=129) ng/mL Ur Phencyclidine Scrn Negative (Cutoff=25) ng/mL Ur Amphetamines Screen Negative (Wmllsm=1188) ng/mL U Benzodiazepines Scrn Negative (Wakqwk=206) ng/mL Urine Cocaine Screen Negative (Cutoff= 300) ng/mL U Marijuana (THC) Screen Negative (Cutoff = 50) ng/mL - Radiology Data Radiology results reviewed: Yes I reviewed the patient's radiology results. Chest X-Ray 03/23/17 06:13 IMPRESSION: 1. No acute radiographic abnormality to account for patient's syncopal episode. D/ / Giorgio Mark MD / Giorgio Mark MD Interpreting Provider: Giorgio Mark MD Head CT 03/23/17 06:13 IMPRESSION: No acute intracranial abnormality. D/ / 03/23/2017 07:47:34 Surya Rodriguez MD / david Interpreting Provider: Surya Rodriguez MD Chest CTA 03/23/17 07:01 IMPRESSION: No evidence of pulmonary embolism or acute pulmonary abnormality. D/ / Mook Farrell MD / Mook Farrell MD Interpreting Provider: Mook Farrell MD
[2017-03-23] MEDS ORDERED: Aspirin 81 MG TAB.CHEW PO STA (08:04)
[2017-03-23 08:47] LABS: Ethanol < 10 mg/dL (0-10); Thyroid Stimulating Hormone 9.424 mcIU/mL (0.340-5.600)
[2017-03-23] MEDS ORDERED: Ondansetron 4 MG/2 ML VIAL IVP PRN (10:48)
[2017-03-23] MEDS ORDERED: Naloxone 0.4 MG/ML INJ IVP PRN (10:48)
[2017-03-23] MEDS ORDERED: Acetaminophen 325 MG TABLET PO PRN (10:48)
[2017-03-23] MEDS ORDERED: *HR* HYDROcodone/Acet 5/325 mg TABLET PO PRN (10:48)
--- NOTE | 2017-03-23 11:28 | Event Note ---
Date of Encounter: 03/23/17 Time of Encounter: 11:22 Patient seen and examined with nurse practitioner. Patients with history of breast cancer status post bilateral mastectomy has been cancer free for the past 5 years had an episode of unresponsiveness at work. Since the morning patient has been having by frontal headache without any focal neurological deficits nausea vomiting or vision problems. She has not had history of ethics before. Reportedly today while at work the patient became unresponsive sat down but according to witnesses never lost consciousness completely. There was no witness seizure activity and patient has not recognized tongue biting or urine incontinence. Patient does not recall a prodrome prior to that. She was noted to have short-term memory loss. She continues to have had it during my interview and has some pain when asked to touch her chest with her chin. CT scan of the head shows no intracranial bleed. She was also noted to have retrosternal nonrotating chest pain with no relation to exertion lasted for approximately 2 hours. She was just pain-free during my interview. EKG shows no ischemic changes in initial troponin was normal. After positive D-dimer, CT angiogram ruled out pulmonary embolism. Etiology for the current presentation include arrhythmia versus seizure versus orthostasis versus conversion disorder versus subarachnoid bleed. We admitted to hospital under observation status, continuous telemetry monitoring, serial cardiac markers, check MRI of the brain , EEG, echocardiogram, carotid Doppler's, orthostatic vital signs. Appreciate neurology input and decision regarding doing a lumbar puncture. Patient has some white cells in urine however she has lots squamous cells. No urinary symptoms. No fever or white count. Hold of antibiotics for now, check urine culture
--- NOTE | 2017-03-23 11:28 | Internal Med History&Physical ---
Date of Encounter: 03/23/17 Time of Encounter: 10:30 Assessment and Plan (1) Syncope Current visit: Yes Status: Acute Acute syncopal episode while at work today. Witnesses state that pt. was seated on floor and confused. Pt. is unsure if she hit her head but does report frontal pain on skull on palpation. Pt. has no long-term memory on exam and does not recognize her , sister, her birthdate, etc. Pts. family denies hx of CVA, TIA, cardiac event, or seizures. Head CT today shows no acute intracranial abnormality. MRI of head/brain ordered w/wo contrast. EEG ordered. NIHSS scale and scheduled neuro checks. Bilateral carotid Dopplers and orthostatic BPs/VS ordered. Neurlogy consult ordered and discussed w/Dr. Hurst and I appreciate the consult. Pt. discussed w/Dr. Bazan who is in agreement w/ plan of care. Pt. is at high risk for further morbidity d/t current sx and memory loss, chest pain, and syncope/collapse. Observation. Qualifiers: Syncope type: unspecified Qualified Code(s): R55 - Syncope and collapse (2) Chest pain Current visit: Yes Status: Acute Acute chest pain that pt. describes as sharp and stabbing today w/numbness in left hand. Unsure if ever happened before. Pts. denies previous cardiac hx or events. EKG today shows sinus rhythm and normal ECG. Initial troponin < 0.03. Will trend x2. Echocardiogram ordered. Continuous cardiac telemetry. Consider cardiology consult if troponins/echo results abnormal. Qualifiers: Chest pain type: unspecified Qualified Code(s): R07.9 - Chest pain, unspecified (3) Elevated d-dimer Current visit: Yes Status: Acute Acutely elevated D-dimer of 729 on admission. Pts. family denies personal or familial hx of DVT/PE. Concern is for possible PE or DVT d/t syncopal episode. CTA of chest negative for PE. Bilateral venous Dopplers of LEs ordered to r/o DVTs (4) Cough present for greater than 3 weeks Current visit: Yes Status: Chronic Pt. reports long-term cough. Pts. family state that cough has been present >1 year. Pts. states that pt. 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 States pt. was not treated. Pts. sister reports their father required repeated TB testing d/t positive results. Quantiferon-TB gold ordered. Consider ID consult based on test results. (5) Hx of breast cancer Current visit: Yes Status: Resolved Hx of breast cancer which resulted in double mastectomy 12 years ago. Pts. sister reports that the pt. did not take chemotherapy or radiation tx. D/t syncope and current AMS/LOM concern is for possible mets to the brain from previous cancer. MRI of head/brain w/wo contrast ordered. (6) DVT prophylaxis Current visit: Yes Status: Acute Bilateral SCDs on pts. LEs for DVT prophylaxis. No pharmacologic DVT prophylaxis at this time until MRI results to r/o intracranial bleed from syncope and collapse. Internal Medicine - H&P: HPI Chief complaint: Syncope Admitted From: Emergency Dept Plans for Post Hospital Care: Home History of present illness: Ms. Valadez is a 52 year old female with medical history of breast cancer w/ double mastectomy 12 years ago was found at work by co-workers sitting on the floor and confused. Pt. states that she has no memory of the event and is alert and oriented x0. Sister and present and report that pt. has never had previous seizure, CVA, TIA, cardiac event, or syncopal episode. Pt. reports that she has had a cough for some time. reports pt. has deep cough >1 year and that pt. was found to have suspicious TB testing 4-5 years ago but was not placed on tx. 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 Sister states pt. did not have chemo or radiation for breast cancer. Pt. reports severe headache in front portion of skull and sharp chest pain w/numbness in left hand today. Family denies recent illness, fever, chills, nausea, vomiting, changes in vision, abdominal pain, diarrhea, constipation. Past Med Surg Social Fam HX - Past Medical History Source: old records reviewed, obtained from family Medical history: other (Breast cancer w/bilateral mastectomies 12 years ago) Psychiatric history: no psych history - Past Surgical History Surgical History: appendectomy, breast surgery, cancer surgery, cholecystectomy , hysterectomy (Total) - Social History Smoking Status: Never smoker Smokeless Tobacco Status: No Alcohol use: none Drug use: none Current living situation: Home, With Family Activity Level: Independent ambulation Recent Out of Country Travel Within the Last 8 Weeks: No Exposure or Possible Exposure to Illness During Travel: No - Family History Father Race: Family Member Ethnicity: Non- Living Status: Age at : 78 Cause of : Alzheimer's disease Hx Family Respiratory Disorders: Yes (Father had to be tested for TB for years d /t + test) Hx Family Neurologic Disorders: Yes (Dementia, Alzheimer's disease) Mother Race: Family Member Ethnicity: Non- Living Status: Age at : 92 Cause of : Old age Hx Family Cardiac Disorders: Yes (CHF) Hx Family Cancer: Yes (Leukemia) Brother Race: Family Member Ethnicity: Non- Living Status: Age at : 66 Cause of : Lung cancer Hx Family Cancer: Yes (Lung) Sister Race: Family Member Ethnicity: Non- Living Status: Age at : 64 Cause of : Bone cancer Hx Family Cancer: Yes (Bone) Internal Medicine - H&P: Meds No Known Home Drugs 03/23/17 [History] 3 Allergy/AdvReac Type Severity Reaction Status Date / Time nitroglycerin Allergy See Verified 12/13/16 09:33 Comments citalopram AdvReac Nausea Verified 12/13/16 09:33 prednisone AdvReac See Verified 12/13/16 09:33 Comments ROS unobtainable: due to mental status All Systems PM: A 10-system review of systems was performed and is negative for pertinent findings except as documented above in the HPI. Review of systems: ROS obtained w/help of spouse/sister. - Constitutional Constitutional: no chills, no fever(s), no night sweats - EENT Eyes: no change in vision, no discharge, no pain, no photophobia Ears: no ear discharge, no ear pain, no tinnitus Nose, mouth and throat: no dysphagia, no nasal discharge, no neck pain, no sore throat - Breasts Breasts: as per HPI - Cardiovascular Cardiovascular ROS IM: as per HPI, chest pain, syncope, no diaphoresis, no dyspnea, no lightheadedness, no palpitations - Respiratory Respiratory: as per HPI, cough, no dyspnea, no wheezing, no excessive phlegm production - Gastrointestinal Gastrointestinal: no abdominal pain, no diarrhea, no hematemesis, no hematochezia, no melena, no nausea, no vomiting - Genitourinary Genitourinary: no change in urinary stream, no dysuria, no flank pain, no hematuria Menstruation: as per HPI, post hysterectomy - Musculoskeletal Musculoskeletal ROS IM: no numbness, no tingling - Integumentary Integumentary IM: no rash, no unusual bruising - Neurological Neurological ROS: as per HPI, numbness (Left hand), no confusion, no convulsions , no focal weakness, no tingling, no tremor(s) - Psychiatric Psychiatric: as per HPI - Endocrine Endocrine IM: as per HPI - Hematologic/Lymphatic Hematologic/Lymphatic: no easy bruising - Allergic/Immunologic Allergic/Immunologic: as per HPI - Constitutional Vitals: Temp Pulse Resp BP Pulse Ox 98.6 F 84 16 115/85 96 03/23/17 09:48 03/23/17 09:48 03/23/17 09:48 03/23/17 09:48 03/23/17 09:48 General appearance: Present: A&O X 0, pleasant, no acute distress, obese - Head Head exam: Present: atraumatic, normocephalic - Eye Eye exam: Present: PERRL, conjuntiva pink, sclera anicteric Pupils: Present: PERRL - ENT ENT exam: Present: normal exam - Neck Neck exam general surgery: Present: normal inspection - Respiratory Respiratory exam: Present: CTAB. Absent: accessory muscle use, rales, rhonchi, wheezes - Cardiovascular Cardiovascular exam: Present: RRR, +S1, +S2. Absent: diastolic murmur, gallop, rubs, systolic murmur - GI/Abdominal GI/Abdominal exam: Present: normal bowel sounds, soft, no peritoneal signs. Absent: distended, tenderness - Rectal Rectal exam: Present: deferred - Additional comments: exam deferred. - Extremities Exam Extremities exam: Present: warm, radial pulses palpable and symmetrical. Absent : calf tenderness, cyanotic, pedal edema - Back Exam Back exam: Present: normal inspection - Neurological Exam Neurological exam: Present: altered, no focal deficits. Absent: pronater drift , facial droop, speech deficit - Psychiatric Psychiatric exam: Present: anxious - Skin Skin exam: Present: dry, intact Internal Med - H&P Results - Labs CBC & Chem 7: 03/23/17 06:05 03/23/17 06:05 - EKG Data EKG shows normal: sinus rhythm - EKG Data Prior EKG available for review: yes Interpretation IM: normal EKG EKG comments: 03/23/17 11:42 EKG dated 07/26/15 shows sinus rhythm with baseline artifact. EKG dated 03/23/17 shows sinus rhythm and normal ECG. - Diagnostic Studies Chest x-ray Additional comments: Impressions Chest X-Ray 03/23/17 06:13 IMPRESSION: 1. No acute radiographic abnormality to account for patient's syncopal episode. D/ / Giorgio Mark MD / Giorgio Mark MD Interpreting Provider: Giorgio Mark MD CT scan - head Additional comments: Impressions Head CT 03/23/17 06:13 IMPRESSION: No acute intracranial abnormality. D/ / 03/23/2017 07:47:34 Surya Rodriguez MD / david Interpreting Provider: Surya Rodriguez MD Other Images Additional comments: Impressions Chest CTA 03/23/17 07:01 IMPRESSION: No evidence of pulmonary embolism or acute pulmonary abnormality. D/ / Mook Farrell MD / Mook Farrell MD Interpreting Provider: Mook Farrell MD
[2017-03-23 12:15] LABS: Prothrombin Time 10.7 Seconds (9.4-12.1)
[2017-03-23 12:18] LABS: Activated Partial Thrombo Time 28.8 Seconds (26.0-36.0)
--- NOTE | 2017-03-23 14:00 | Neurology - Consult Note ---
<Seda Monique - Last Filed: 03/23/17 14:52> Date of Encounter: 03/23/17 Time of Encounter: 13:50 Assessment and Plan (1) Amnesia Current Visit: Yes Status: Acute Unsure whether or not she had syncopal event. no episodes of urinary/fecal incontinence, tongue biting, or other seizure like activity head CT unremarkable brain MRI: minimal chronic small vessel ischemic changes. patient cannot recall anything about her past and cannot recognize her or sister CTA negative for PE TSH: 9.424 Plan: etiology unclear at his time. possibilities include hashimotors encephalitis vs. dissociative fugue? will check anti microsomal and thyroglobulin antibodies, along with thyroid cascade. Echo, carotid duplex pending will hold off on lumbar puncture for now until test results come back. History of Present Illness Chief complaint: amnesia HPI: Ms. Valadez is a 52 year old female with PMHx of breast cancer s/p double mastectomy. She has no other medical problems and is on no medications. Patient arrived to [facility] today with chief complaint of amnesia. Most of history was obtained from patient's and daughter. Patient went to work early this morning, and was found by co workers to be sitting on the floor. There was no witnessed seizure activity, and patient's sister states that she does not think there was any loss of consciousness. There was no bowel or bladder incontinence or any seizure like activity. Patient is alert and oriented x1. SHe could state her first name because her name was told to her by her family, but she could not recall her last name, date of , date, or year. She does know that she is at a hospital. Patient does report headache with pain located in the frontal portion of her head. she denies nausea, vomiting, diarrhea, fever, chills, chest pain, or shortness of breath. does not state that this has happened before. she denies any further problems today. Past Med Surg Social Fam HX - Past Medical History Medical history: other (Breast cancer w/bilateral mastectomies 12 years ago) Psychiatric history: no psych history - Past Surgical History Surgical History: appendectomy, breast surgery, cancer surgery, cholecystectomy , hysterectomy (Total) - Social History Smoking Status: Never smoker Smokeless Tobacco Status: No Alcohol use: none Drug use: none - Family History Father Race: Family Member Ethnicity: Non- Living Status: Age at : 78 Cause of : Alzheimer's disease Hx Family Respiratory Disorders: Yes (Father had to be tested for TB for years d /t + test) Hx Family Neurologic Disorders: Yes (Dementia, Alzheimer's disease) Mother Race: Family Member Ethnicity: Non- Living Status: Age at : 92 Cause of : Old age Hx Family Cardiac Disorders: Yes (CHF) Hx Family Cancer: Yes (Leukemia) Brother Race: Family Member Ethnicity: Non- Living Status: Age at : 66 Cause of : Lung cancer Hx Family Cancer: Yes (Lung) Sister Race: Family Member Ethnicity: Non- Living Status: Age at : 64 Cause of : Bone cancer Hx Family Cancer: Yes (Bone) Medications and Allergies No Known Home Drugs 03/23/17 [History] 3 Allergy/AdvReac Type Severity Reaction Status Date / Time nitroglycerin Allergy See Verified 12/13/16 09:33 Comments citalopram AdvReac Nausea Verified 12/13/16 09:33 prednisone AdvReac See Verified 12/13/16 09:33 Comments All Systems: A 10-system review of systems was performed and is negative for pertinent findings except as documented above in the HPI. - Constitutional Constitutional ROS IM: as per HPI Physical Examination - Vital Signs Vital Signs: Initial Vital Signs Temp Pulse Resp BP Pulse Ox 98.2 F 91 20 137/94 97 03/23/17 05:59 03/23/17 05:59 03/23/17 05:59 03/23/17 05:59 03/23/17 05:59 - Constitutional General appearance: comfortable - Neurologic Sensorimotor examination: intact Motor examination - right side: 4/5: deltoids, biceps, conciliation court judge, hip flexors, quadriceps Motor examination - left side: 4/5: deltoids, biceps, hip flexors, conciliation court judge, tibialis Anterior Detailed sensory examination: intact Reflex and gait examination: intact Reflexes: Brachioradialis: 2+, Patella: 2+, Achilles: 2+ Mental Status Examination: awake, alert, oriented to place, follows commands appropriately Cranial nerve examination: PERRL, EOMI, visual montero intact, sensory to face intact, no facial asymmetry is present Results - Laboratory Findings CBC and BMP: 03/23/17 06:05 03/23/17 06:05 Abnormal lab findings: Abnormal lab results RBC 5.26 M/mcL (3.82-4.97) H 03/23/17 06:05 MCV 82.3 fL (83.0-100.0) L 03/23/17 06:05 MCH 26.8 pg (28.0-33.3) L 03/23/17 06:05 RDW 15.4 % (11.5-14.5) H 03/23/17 06:05 Eosinophils # 0.7 K/mcL (0.0-0.6) H 03/23/17 06:05 D-Dimer 729 ng/mLFEU (0-500) H 03/23/17 06:05 POC Glucose 96 (58-89) H 03/23/17 06:03 TSH 9.424 mcIU/mL (0.340-5.600) H 03/23/17 08:01 Urine Clarity Cloudy (Clear) A 03/23/17 06:34 Ur Specific [place] 1.009 (1.010-1.025) L 03/23/17 06:34 Ur Leukocyte Esterase Moderate (Negative) H 03/23/17 06:34 Urine Microscopic WBC 15-30 per hpf (0-3) H 03/23/17 06:34 Ur Squamous Epith Cells Many per lpf (None-Few) H 03/23/17 06:34 Consult Discharge Plan - Plan Referrals: Suzanne Vincent, [employer] [Primary Care Provider] - <Brittni Hurst I - Last Filed: 03/23/17 16:32> Date of Encounter: 03/23/17 Assessment and Plan (1) Amnesia Current Visit: Yes Status: Acute She was seen and examined agreed with the resident history and documentation. On neurological examination she is alert awake and oriented 3 now she is able to have a conversation no focal motor deficit on formal Mini-Mental she was able to recall 3 out of 3, also able to do the serial 7, no difficulty in drawing pentagon, no difficulty in drawing the clock. Able to write a complete sentence. Cranial nerves are all intact motor sensory cerebellar testing is also within normal limits. MRI of the brain negative for any acute infarct or any other underlying acute abnormality. We will review the EEG On her blood tests she did have an abnormal TSH. At this time the differential include : Transient global amnesia, though the presentation is not typical especially the neurological exam is not consistent as most of the time those patient has intact working memory despite not being able to perform short-term memory they were able to recognize their self as well as family members. TIA. Less likely presentation is not typical imaging studies are negative for any vascular abnormality Encephalopathy Metabolic toxic, she did have abnormal TSH though it is not significantly abnormal that can cause mental status changes to that level but Tatyana's encephalopathy is not differential for that reason I would recommend getting antibodies There is a concern that she may have TB positive in the past, I would recommend repeating an MRI with and without contrast and of the same time should check for other workup for positive TB testing and at the same time recommend checking for RPR and vitamin B12 folate as well as for any underlying infectious process, though no clinical or laboratory evidence of any KNEE BOLTER meningitis or encephalitis at this time If all workup is negative we have to keep psychological causes in mind as well, family has mentioned that last year at this time of the year in March she has 3 family members unexpectedly including her mother and a brother, perhaps timing of the year may have been the precipitating factor. Brittni Hurst MD History of Present Illness HPI: Ms. Valadez is a 52 year old female All Systems: A 10-system review of systems was performed and is negative for pertinent findings except as documented above in the HPI. Physical Examination - Vital Signs Vital Signs: Initial Vital Signs Temp Pulse Resp BP Pulse Ox 98.2 F 91 20 137/94 97 03/23/17 05:59 03/23/17 05:59 03/23/17 05:59 03/23/17 05:59 03/23/17 05:59 Results - Laboratory Findings CBC and BMP: 03/23/17 06:05 03/23/17 06:05 Abnormal lab findings: Abnormal lab results RBC 5.26 M/mcL (3.82-4.97) H 03/23/17 06:05 MCV 82.3 fL (83.0-100.0) L 03/23/17 06:05 MCH 26.8 pg (28.0-33.3) L 03/23/17 06:05 RDW 15.4 % (11.5-14.5) H 03/23/17 06:05 Eosinophils # 0.7 K/mcL (0.0-0.6) H 03/23/17 06:05 D-Dimer 729 ng/mLFEU (0-500) H 03/23/17 06:05 POC Glucose 96 (58-89) H 03/23/17 06:03 TSH 9.424 mcIU/mL (0.340-5.600) H 03/23/17 08:01 Urine Clarity Cloudy (Clear) A 03/23/17 06:34 Ur Specific [place] 1.009 (1.010-1.025) L 03/23/17 06:34 Ur Leukocyte Esterase Moderate (Negative) H 03/23/17 06:34 Urine Microscopic WBC 15-30 per hpf (0-3) H 03/23/17 06:34 Ur Squamous Epith Cells Many per lpf (None-Few) H 03/23/17 06:34
--- NOTE | 2017-03-23 16:43 | EEG/EMG/Oth Biometrics Report ---
EEG Procedure Report Date of procedure: 03/23/17 EEG Procedure: Routine EEG Procedure Note: PT with confusion ?? Routine 21-channel digital EEG was obtained to rule out any seizure activity or focal abnormalities. FINDINGS: Background rhythm during awake stage shows well-organized, well- developed, average voltage 8 to 9 hertz alpha activity in the posterior regions. It blocks with eye opening and it is bilaterally synchronous and symmetrical. No [id number] discharges or any lateralizing abnormalities are seen. Photic stimulation did not produce any abnormalities. Hyperventilation was not performed. No abnormalities were found during the procedure. Intermittent EMG artifacts were seen. Stage II sleep was not achieved. IMPRESSION: Normal awake study. No epileptiform discharges or any other paroxysmal activities or focal abnormalities seen. Clinical correlation is recommended
[2017-03-23 18:16] LABS: Folate 18.2 ng/mL (3.0-16.0)
[2017-03-23 18:30] LABS: Thyroid Stimulating Hormone 9.715 mcIU/mL (0.340-5.600)
[2017-03-23 18:37] LABS: Triiodothyronine (T3) Total 1.12 ng/mL (0.87-1.78)
[2017-03-24 08:08] LABS: Alanine Aminotransferase 15 Units/L (7-52); Albumin/Globulin Ratio 1.2 (1.1-2.2); Alkaline Phosphatase 79 Units/L (34-104); Aspartate Amino Transferase 16 Units/L (13-39); BUN/Creatinine Ratio 14 (6-26); Bilirubin,Total 0.4 mg/dL (0.3-1.0); Blood Urea Nitrogen 12 mg/dL (6-20); Calcium 9.5 mg/dL (8.6-10.3); Carbon Dioxide 26 mEq/L (23-29); Chloride 104 mEq/L (98-107); Chol/HDL Ratio 3.9 (0-4.9); Cholesterol 210 mg/dL (< 200); Globulin 3.4 g/dL (2.4-3.5); Glucose 94 mg/dL (70-105); HDL Cholesterol 54 mg/dL (40-59); LDL Cholesterol,Calculated 126 mg/dL (0-99); Magnesium 2.1 mg/dL (1.6-2.6); Osmolality,Calculated 284 (280-300); Potassium 3.6 mEq/L (3.5-5.1); Sodium 137 mEq/L (136-145); Total Protein 7.4 g/dL (6.4-8.9); Triglycerides 152 mg/dL (< 150); eGFR For African Americans > 60 (> 60); eGFR For Non-African Americans > 60 (> 60)
[2017-03-24 08:29] LABS: Basophils # 0.1 K/mcL (0.0-0.2); Eosinophils # 0.7 K/mcL (0.0-0.6); Eosinophils % 13.3 %; Hematocrit 40.9 % (35.3-44.9); Hemoglobin 12.9 g/dL (11.5-15.4); Lymphocytes # 1.7 K/mcL (0.6-4.6); Lymphocytes % 31.6 %; Mean Corpuscular HGB Conc 31.5 g/dL (31.6-35.5); Mean Corpuscular Hemoglobin 26.4 pg (28.0-33.3); Mean Corpuscular Volume 83.8 fL (83.0-100.0); Mean Platelet Volume 10.1 fL (9.4-12.4); Monocytes # 0.6 K/mcL (0.0-1.3); Monocytes % 10.6 %; Neutrophils # 2.3 K/mcL (1.6-8.9); Platelet Count 302 K/mcL (140-400); Red Blood Count 4.88 M/mcL (3.82-4.97); Red Cell Distribution Width 15.7 % (11.5-14.5); Segmented Neutrophils % 42.5 %
[2017-03-24 08:49] LABS: Hemoglobin A1C 5.7 %
[2017-03-24] MEDS: Aspirin Enteric Coated 81 MG Tablet PO SCH (09:18)
--- NOTE | 2017-03-24 09:45 | Neurology Progress Note ---
<Seda Monique - Last Filed: 03/24/17 09:38> Date of Encounter: 03/24/17 Time of Encounter: 09:38 Assessment and Plan (1) Amnesia Current Visit: Yes Status: Acute Unsure whether or not she had syncopal event. no episodes of urinary/fecal incontinence, tongue biting, or other seizure like activity head CT unremarkable brain MRI: minimal chronic small vessel ischemic changes. patient cannot recall anything about her past and cannot recognize her or sister CTA negative for PE TSH: 9.424, T4, T3 normal. normal awake EEG Echo within normal limits. carotid ultrasound preliminary report: within normal limits B12: 477 Folate: 18.2 Plan: etiology unclear at his time. possibilities include hashimotors encephalitis vs. stroke vs. psychiatric causes? Of note, patient did have three consecutive deaths in her family around this time last year. She also does have history of depression and was on anti depressants in the past. anti microsomal and thyroglobulin antibodies pending RPR pending will hold off on lumbar puncture for now until test results come back, as infectious etiology unlikely. Subjective Interval history: 52F evaluated at bedside. she denies nausea, vomiting, diarrhea, fever, chills, chest pain, shortness of breath. she was sitting up in bed talking with her children. Objective - Constitutional Vitals: Temp Pulse Resp BP Pulse Ox 97.8 F 65 17 113/78 95 03/24/17 07:01 03/24/17 07:01 03/24/17 07:01 03/24/17 07:01 03/24/17 07:01 General appearance: Present: A&O X 3, pleasant, no acute distress - Head Head exam: Present: atraumatic, normocephalic - Eye Eye exam: Present: PERRL Pupils: Present: PERRL - Extremities Exam Extremities exam: Absent: cyanotic, pedal edema - Neurological Exam Sensorimotor examination: Present: intact Motor examination - right side: 4/5: deltoids, biceps, hip flexors, tibialis Anterior, quadriceps Motor examination - left side: 4/5: deltoids, biceps, hip flexors, parachute harness rigger, quadriceps, tibialis Anterior Sensation intact: Present: intact Reflex and gait examination: intact Reflexes: Brachioradialis: 2+, Patella: 2+ Mental Status Examination: Present: awake, alert, oriented to person, oriented to place, oriented to time, follows commands appropriately, no agnosia, no aphasia Cranial nerve examination: Present: PERRL, EOMI, visual montero intact, sensory to face intact, no facial asymmetry is present Results - Laboratory Findings CBC and BMP: 03/24/17 06:38 01 06:38 Abnormal lab findings: Abnormal lab results MCH 26.4 pg (28.0-33.3) L 03/24/17 06:38 MCHC 31.5 g/dL (31.6-35.5) L 03/24/17 06:38 RDW 15.7 % (11.5-14.5) H 03/24/17 06:38 Eosinophils # 0.7 K/mcL (0.0-0.6) H 03/24/17 06:38 D-Dimer 729 ng/mLFEU (0-500) H 03/23/17 06:05 POC Glucose 114 (58-89) H 03/23/17 23:44 Hemoglobin A1c 5.7 % (-5.6) H 03/24/17 06:38 Triglycerides 152 mg/dL (< 150) H 03/24/17 06:38 Cholesterol 210 mg/dL (< 200) H 03/24/17 06:38 LDL Cholesterol, Calc 126 mg/dL (0-99) H 03/24/17 06:38 Folate 18.2 ng/mL (3.0-16.0) H 03/23/17 17:05 TSH 9.715 mcIU/mL (0.340-5.600) H 03/23/17 17:53 Urine Clarity Cloudy (Clear) A 03/23/17 06:34 Ur Specific [place] 1.009 (1.010-1.025) L 03/23/17 06:34 Ur Leukocyte Esterase Moderate (Negative) H 03/23/17 06:34 Urine Microscopic WBC 15-30 per hpf (0-3) H 03/23/17 06:34 Ur Squamous Epith Cells Many per lpf (None-Few) H 03/23/17 06:34 Consult Discharge Plan - Plan Referrals: Suzanne Vincent, CLAIM ADMINISTRATOR [Primary Care Provider] - <Brittni Hurst I - Last Filed: 03/24/17 12:22> Date of Encounter: 03/24/17 Assessment and Plan (1) Amnesia Current Visit: Yes Status: Acute Pt seen and Examined , so far all work up is negative, suspect related to underlying Stress/Depression recommend GWYN Parrish to discharge from neuro stand point, Brittni Hurst MD Objective - Constitutional Vitals: Temp Pulse Resp BP Pulse Ox 98 F 77 16 109/75 94 03/24/17 11:18 03/24/17 11:18 03/24/17 11:18 03/24/17 11:42 03/24/17 11:18 Results - Laboratory Findings CBC and BMP: 03/24/17 06:38 03/24/17 06:38 Abnormal lab findings: Abnormal lab results MCH 26.4 pg (28.0-33.3) L 03/24/17 06:38 MCHC 31.5 g/dL (31.6-35.5) L 03/24/17 06:38 RDW 15.7 % (11.5-14.5) H 03/24/17 06:38 Eosinophils # 0.7 K/mcL (0.0-0.6) H 03/24/17 06:38 D-Dimer 729 ng/mLFEU (0-500) H 03/23/17 06:05 POC Glucose 114 (58-89) H 03/23/17 23:44 Hemoglobin A1c 5.7 % (-5.6) H 03/24/17 06:38 Triglycerides 152 mg/dL (< 150) H 03/24/17 06:38 Cholesterol 210 mg/dL (< 200) H 03/24/17 06:38 LDL Cholesterol, Calc 126 mg/dL (0-99) H 03/24/17 06:38 Folate 18.2 ng/mL (3.0-16.0) H 03/23/17 17:05 TSH 9.715 mcIU/mL (0.340-5.600) H 03/23/17 17:53 Urine Clarity Cloudy (Clear) A 03/23/17 06:34 Ur Specific [place] 1.009 (1.010-1.025) L 03/23/17 06:34 Ur Leukocyte Esterase Moderate (Negative) H 03/23/17 06:34 Urine Microscopic WBC 15-30 per hpf (0-3) H 03/23/17 06:34 Ur Squamous Epith Cells Many per lpf (None-Few) H 03/23/17 06:34
--- NOTE | 2017-03-24 18:19 | Internal Med Progress Note ---
Date of Encounter: 03/24/17 Time of Encounter: 10:50 - Assessment and plan (1) Syncope Current Visit: Yes Status: Suspected Assessment and plan: Patient found on floor at work yesterday prior to arrival. She was confused. The patient has no recollection of events preceding. Her said that she takes that her sister saying she was having chest pain. 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 She says she remembers having an intense pain mid occiput and then remembers being here. On arrival to the emergency department patient was unable to name her family or where she was. As today has progressed, she has become more aware and is recalling more events from yesterday. Suspect episode has more of a mental health component and a medical component. Psychiatry has been consulted. I appreciate his consultation and recommendations. Patient's TSH is mildly elevated at 9.175, neurology has ordered labs to evaluate for the presence of Tatyana's encephalitis. The labs are send out test and will not be available for several days. Head CT was negative, had MRI was negative. Urinalysis was negative, chest x- ray was negative. Patient had an EEG that was negative. With a static vital signs are negative. Her labs and vitals have remained stable throughout the visit. Patient reports history of depression over the last year and was recently taken off antidepressant medications. Continue telemetry Continue to monitor labs and vital signs Qualifiers: Syncope type: unspecified Qualified Code(s): R55 - Syncope and collapse (2) Depression Current Visit: Yes Status: Acute Assessment and plan: Patient has been on antidepressants twice in the last year. Per her request, she was recently taken off antidepressants by her primary care provider. Patient has history of breast cancer. Her brother and sister both due to cancer last year within a month of each other. Her mother also within a month also. reports the patient had become more depressed around the holidays due to him being gone a lot and her mother not being here for [place]. Patient verbalized to me that she has had thoughts of harming herself in the past, she does feel helpless and hopeless. She states she has no plan and would not be able to harm herself due to her children and her . Psychiatry consultation in an pending. Sitter ordered. Qualifiers: Depression Type: unspecified Qualified Code(s): F32.9 - Major depressive disorder, single episode, unspecified (3) Anxiety Current Visit: Yes Status: Chronic Assessment and plan: Patient appears just during examination. says patient worries more than a person he is ever known. Patient states that she has not been sleeping well and cannot shut her brain off since being in the hospital. Ativan 0.5 mg ordered 1 tonight. Psychiatry consultation and an pending. (4) Interstitial lung disease Current Visit: Yes Status: Chronic Assessment and plan: Per patient history. (5) Chest pain Current Visit: Yes Status: Acute Assessment and plan: Patient texted that her sister prior to episode yesterday stating that she had chest pain. She denies chest pain now. Echocardiogram reveals a preserved ejection fraction, mild LV DD no significant valvular dysfunction. Elevated d-dimer on arrival. Chest CTA negative for PE. BLE venous duplex normal. Troponins have been negative 3. As stated above, TSH mildly elevated. Chest x-ray negative. Cholesterol elevated at 210, triglycerides elevated 152. EKG was normal sinus rhythm. She takes no home medications. She has been started on aspirin 81 mg. I will also start her on low-dose statin. Continue telemetry. Continue to monitor labs. Qualifiers: Chest pain type: unspecified Qualified Code(s): R07.9 - Chest pain, unspecified (6) DVT prophylaxis Current Visit: Yes Status: Acute Assessment and plan: Patient has been ambulatory in the room. (7) Elevated d-dimer Current Visit: Yes Status: Acute Assessment and plan: Plan as above. (8) Hx of breast cancer Current Visit: Yes Status: Resolved Assessment and plan: Per patient history. Patient had double mastectomy 12 years ago. MRI of the head/brain was negative. (9) Amnesia Current Visit: Yes Status: Acute Assessment and plan: Related to possible syncopal event yesterday at work. Her head and brain CT and MRI are both negative. Patient is slowly regaining her memory today and is able to recall most events from yesterday, identify her family, can state the month, year, day, date and president. Transient amnesia, most likely related to depression. Psychiatry consultation is in and pending. Sitter ordered. Monitor for patient safety. - Time Spent With Patient less than 15 minutes - Subjective Interval history: Patient was seen and assessed at bedside at 10:50 AM. Has been itchy children were at bedside. At this time, patient appeared to be slightly confused. 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 She knew her family's names, which she had not previously. Patient reports that she was recently taken off her antidepressant at her request. helps to clarify the story saying that patient's mother, brother, and sister all approximately one year ago within 1 month of each other over a 3 month span of time. Patient's states that he noticed patient becoming more depressed around [place] time since he was away at work, she was at home, she was struggling with not having her family around for [place]. Patient does tell me that she has thought of killing herself before but would be unable to do so and does not have a plan. She does say that she feels helpless and hopeless, but does not want to because of her children and . Sitter has been ordered. - Constitutional Vitals: Temp Pulse Resp BP Pulse Ox 98.5 F 73 20 116/78 95 03/24/17 15:00 03/24/17 15:00 03/24/17 15:00 03/24/17 15:00 03/24/17 15:00 General appearance: Present: A&O X 3, pleasant, no acute distress, obese, answers questions appropriately - Head Head exam: Present: atraumatic, normal inspection, normocephalic - Eye Eye exam: Present: EOMI, normal appearance, PERRL, conjuntiva pink, sclera anicteric. Absent: nystagmus Pupils: Present: PERRL - Neck Neck exam general surgery: Present: normal inspection, supple, trachea midline. Absent: lymphadenopathy, tenderness - Respiratory Respiratory exam: Present: CTAB. Absent: accessory muscle use, chest wall tenderness, decreased breath sounds, rales, rhonchi, wheezes - Cardiovascular Cardiovascular exam: Present: RRR, +S1, +S2. Absent: diastolic murmur, gallop, rubs, systolic murmur - GI/Abdominal GI/Abdominal exam: Present: soft, no peritoneal signs. Absent: distended, hepatomegaly, tenderness - Extremities Exam Extremities exam: Present: normal capillary refill, normal inspection, warm, radial pulses palpable and symmetrical. Absent: calf tenderness, cyanotic, joint swelling, pedal edema, tenderness - Neurological Exam Neurological exam: Present: alert, CN II-XII intact, motor sensory deficit, oriented X3, no focal deficits. Absent: altered, facial droop, speech deficit - Skin Skin exam: Present: dry, intact, normal color, warm. Absent: rash Internal Medicine: Result - Labs CBC & Chem 7: 03/24/17 06:38 03/24/17 06:38 Labs: Short CBC 03/24/17 Range/Units 06:38 WBC 5.5 (4.3-11.1) K/mcL Hgb 12.9 (11.5-15.4) g/dL Hct 40.9 (35.3-44.9) % Plt Count 302 (140-400) K/mcL Neutrophils # 2.3 (1.6-8.9) K/mcL BMP 03/24/17 06:38 Sodium 137 Potassium 3.6 Chloride 104 Carbon Dioxide 26 BUN 12 Creatinine 0.86 Glucose 94 Calcium 9.5 Cardiac Enzymes 03/23/17 Range/Units 17:53 Troponin I < 0.03 (< 0.04) ng/mL Liver Function 03/24/17 Range/Units 06:38 Total Bilirubin 0.4 (0.3-1.0) mg/dL AST 16 (13-39) Units/L ALT 15 (7-52) Units/L Alkaline Phosphatase 79 (34-104) Units/L Albumin 4.0 (3.5-5.7) g/dL - ABG Interpretation ABG results: PT/INR, D-dimer PT 10.7 Seconds (9.4-12.1) 03/23/17 11:10 D-Dimer 729 ng/mLFEU (0-500) H 03/23/17 06:05 - Impressions Impressions Echocardiogram 03/23/17 10:56 Impressions: LVEF 60-65%. Normal LV chamber size, wall thickness and function. Mild left ventricular diastolic dysfunction. Normal right ventricular structure and function. No significant valvular dysfunction. No evidence of pulmonary hypertension. Left Ventricular Wall Motion: Rest Echo Findings All wall segments showed normal motion. Findings: Study Quality * Technically adequate exam. ECG Findings * Normal sinus rhythm. Left Ventricle * LVEF 60-65%. * Normal LV chamber size, wall thickness and function. * Mild left ventricular diastolic dysfunction. Right Ventricle * Normal right ventricular structure and function. Left Atrium * Normal left atrial size. Right Atrium * Normal right atrial size. Aortic Valve * Trileaflet aortic valve with normal function. * No aortic stenosis. * Trace aortic regurgitation. Mitral Valve * Normal mitral valve structure and function. * No mitral regurgitation. * No mitral stenosis. Tricuspid Valve * Normal tricuspid valve structure and function. * Trace tricuspid regurgitation. * No evidence of pulmonary hypertension. Pulmonic Valve * Normal pulmonic valve structure and function. * No pulmonic regurgitation. Aorta * Normally sized aortic root. Pericardium * The pericardium appears normal. IVC * Normal IVC dimensions and inspiratory collapse. Pulmonary Artery * Normal visualized portions of the main pulmonary artery. Consult Discharge Plan - Plan Referrals: Suzanne Vincent CNP [Primary Care Provider] -
--- NOTE | 2017-03-24 18:48 | Electrocardiograph Report ---
[address] [place] [address] Test Date: 2017-03-23 Pat Name: Parris Valadez Department: 102 Room: 3B44 Gender: F Corrugated Box Machine Operator: : 1965 Requested By: Oneal Baez Order Number: [id number] Reading MD: Alfonso Gastelum MD Measurements Intervals [place] Rate: 81 P: 41 WY: 147 QRS: 3 QRSD: 84 T: 23 QT: 353 QTc: 390 Interpretive Statements SINUS RHYTHM Electronically Signed On 03-24-2017 18:46:49 EST by Alfonso Gastelum MD
[2017-03-24] MEDS ORDERED: *HR* LORazepam 0.5 MG TABLET PO ONE (18:53)
[2017-03-25 06:51] LABS: Basophils # 0.1 K/mcL (0.0-0.2); Basophils % 1.9 %; Eosinophils # 0.7 K/mcL (0.0-0.6); Eosinophils % 12.9 %; Hematocrit 38.5 % (35.3-44.9); Hemoglobin 11.9 g/dL (11.5-15.4); Immature Granulocytes % 0.2 % (0-4); Lymphocytes # 1.6 K/mcL (0.6-4.6); Lymphocytes % 28.3 %; Mean Corpuscular HGB Conc 30.9 g/dL (31.6-35.5); Mean Corpuscular Hemoglobin 26.2 pg (28.0-33.3); Mean Corpuscular Volume 84.8 fL (83.0-100.0); Mean Platelet Volume 9.8 fL (9.4-12.4); Monocytes # 0.7 K/mcL (0.0-1.3); Monocytes % 12.4 %; Neutrophils # 2.5 K/mcL (1.6-8.9); Platelet Count 280 K/mcL (140-400); Red Blood Count 4.54 M/mcL (3.82-4.97); Red Cell Distribution Width 15.2 % (11.5-14.5); Segmented Neutrophils % 44.3 %
[2017-03-25 07:38] LABS: Alanine Aminotransferase 12 Units/L (7-52); Albumin 3.8 g/dL (3.5-5.7); Albumin/Globulin Ratio 1.2 (1.1-2.2); Alkaline Phosphatase 73 Units/L (34-104); Aspartate Amino Transferase 12 Units/L (13-39); BUN/Creatinine Ratio 18 (6-26); Bilirubin,Total 0.3 mg/dL (0.3-1.0); Blood Urea Nitrogen 16 mg/dL (6-20); Calcium 9.4 mg/dL (8.6-10.3); Carbon Dioxide 27 mEq/L (23-29); Chloride 107 mEq/L (98-107); Globulin 3.2 g/dL (2.4-3.5); Glucose 78 mg/dL (70-105); Osmolality,Calculated 292 (280-300); Potassium 4.4 mEq/L (3.5-5.1); Sodium 141 mEq/L (136-145); eGFR For African Americans > 60 (> 60); eGFR For Non-African Americans > 60 (> 60)
[2017-03-25] MEDS: Aspirin Enteric Coated 81 MG Tablet PO SCH (09:29)
--- NOTE | 2017-03-25 11:52 | Consult Note ---
Date of Encounter: 03/25/17 Time of Encounter: 10:15 Assessment & Recommendation (1) Depression, major, recurrent Status: Acute Assessment & Recommendation: Patient meets criteria for major depressive disorder. I talked to about restarting her Zoloft at 50 mg targeting her depression. I explained that it was not a controlled substance and would not show up in a urine drug screen for abused substances. I explianed to her that the dose would most likely need to be increased back up to 100 mg or higher depending on her mood response. I also strongly encouraged her to get outpatient counseling; to talk to someone about issues in her life and process the grief she experiences past year. She thought that might be a good idea. I explained to her to call her insurance company and find out what social professionals or psychologist/therapist was covered by insurance and get a referral that way. I also discussed with her that potentially her syncopal episode could have been a panic attack what she described. But that medical was making sure it was not anything neurological or vascular. I spoke to her potentially about taking a low dose of Ativan periodically to help with her anxiety if she needed. That may not be necessary after she restarts the Zoloft as it target any anxiety symptoms via the SSRI receptors. I reviewed this with her insulation worker furnace installer Rebekah Feliciano CNP she stated that she would reiterate the recommendations. Qualifiers: Active/Remission status: currently active Major depression episode severity : severe Psychotic features: without psychotic features Qualified Code(s): F33.2 - Major depressive disorder, recurrent severe without psychotic features History of Present Illness Patient: new to practice Requesting Physician: Rebekah Feliciano CNP Reason for consult: Mood problems History of present illness: Ms. Valadez is a 52 year old female who is being followed on the medical floor secondary to being brought to the emergency room after being found on the floor at her job site confused having had a syncopal episode. Patient initially reported to her clinician on the medical floor that she had no recollection of the event and initially did not recognize her family and was unable to provide colleagues with primary information. She was very confused and disoriented. She is currently undergoing a neurological workup. Patient has a history of depression and anxiety and consult was requested for evaluation. When I went to consult with the patient, she was in her hospital room in bed and her was present. She consented to talk to me with her present for the whole interview process. Patient told me that she remembered having a bad headache and having chest pains at work. The pain was very bad in the back of her head, at the nap of her neck. And she describes it as being the worst headache she ever had. The next thing she remembered she was waking up, sitting on the floor, not know what happened. She states this is never happened before. She experienced some short-term memory loss after the episode but denies having any problems with her memory now. She is aware the correct day and date, recyclable materials collector, where she currently is, her address, her 's name, her children names and ages. The patient and her report that she has a history of having been on antidepressants before after her mother and approximately 12 years ago after receiving a diagnosis and treatment for cancer. She was taking Zoloft 100 mg. She had been restarted on them a year ago after her mother and stop taking them this past spring. She had had increased stress in the past year with her mother dying a year ago March, her auveald-go-yyd dying several weeks later and her sister 2 months after that. She also feels sad and anxious at times in regards to her children. She states that are getting older and do not need her and spend most of their time in their room studying or playing video games. She reports that historically all her free time she used to spend with her mother and she is not there anymore. Her also recently has started a new job where he is on the road traveling quite a bit and he was not home for [place]. This was very upsetting for her cause it was her 1st Doe without her mother, her sister, her [id number] and her . Patient states that she is depressed thinking about her 18-year- old son getting ready to graduate high school and that he will need her not meet her at all she has problems with concern over the separation and him being on his own. Her gets concerned when he finds his crying stating that she " wants to be with mommy". He does not think that this is her wish to to be with her mother, but still gets concerned. Patient denies that she would ever do anything to harm herself or anybody else. She does state that time she feels hopeless and helpless. Her mood is sad and depressed, She does not necessarily enjoy doing things that she used to like to do. She finds her self isolating and feeling lonely quite a bit of the time. She finds herself very emotional, crying very easily and suffers from poor attention and concentration. She is anxious and worries excessively about things and has a difficult time calming herself down. Her depressed mood and symptoms of anxiety have been getting getting worse over the last 2 or 3 months. Se experiences the symptoms more often than not. She states she stopped the Zoloft this past spring as she does not like to take medications and she has frightened that they showed up in a pre-employement drug screen and it that is why she did not get a job. She is very cautious with taking pills and worries about dependency issues as well as what damage they could do to her body and internal organs. She states that she sleeping at least 6 hours a night and has a good appetite. She denies going days and days without sleep. She denies any gambling issues or impulsivity. She does not hear voices other people do not hear nor does she see things other people do not see. She denies getting special messages from the TV or radio. She denies any paranoia or that anybody's out to get her. CC: Rebekah Feliciano, JEANNE Past Med Surg Social Fam HX - Past Medical History Medical history: other (Breast cancer w/bilateral mastectomies 12 years ago) - Past Psychiatric History Psychiatric history: Reports: depression Family psychiatric history: No Family History of Suicide: None - Past Surgical History Surgical History: appendectomy, breast surgery, cancer surgery, cholecystectomy , hysterectomy (Total) - Social History Smoking Status: Never smoker Smokeless Tobacco Status: No Alcohol use: none Drug use: none Occupational status: employed Current living situation: Home - Independent Activity Level: Independent ambulation Recent Out of Country Travel Within the Last 8 Weeks: No Exposure or Possible Exposure to Illness During Travel: No - Family History Father Race: Family Member Ethnicity: Non- Living Status: Age at : 78 Cause of : Alzheimer's disease Hx Family Respiratory Disorders: Yes (Father had to be tested for TB for years d /t + test) Hx Family Neurologic Disorders: Yes (Dementia, Alzheimer's disease) Mother Race: Family Member Ethnicity: Non- Living Status: Age at : 92 Cause of : Old age Hx Family Cardiac Disorders: Yes (CHF) Hx Family Cancer: Yes (Leukemia) Brother Race: Family Member Ethnicity: Non- Living Status: Age at : 66 Cause of : Lung cancer Hx Family Cancer: Yes (Lung) Sister Race: Family Member Ethnicity: Non- Living Status: Age at : 64 Cause of : Bone cancer Hx Family Cancer: Yes (Bone) Medications & Allergies Atorvastatin [Lipitor] 10 mg PO HS #30 tablet 03/25/17 [Rx] LORazepam [Ativan] 0.5 mg PO BID PRN #8 tablet 03/25/17 [Rx] Sertraline [Zoloft] 50 mg PO HS #30 tablet 03/25/17 [Rx] 3 Allergy/AdvReac Type Severity Reaction Status Date / Time nitroglycerin Allergy See Verified 12/13/16 09:33 Comments citalopram AdvReac Nausea Verified 12/13/16 09:33 prednisone AdvReac See Verified 12/13/16 09:33 Comments Mental Status Exam Patient orientation: Yes Person, Yes Time, Yes Place, Yes Circumstance Level of alertness: Alert Patient appearance: Appropriate, Well Groomed Behavior: anxious, tearful Psychomotor activity: Normal Eye contact: Fleeting Contact Mood description: Depressed, Anxious Affect description: congruent with mood Speech pattern: Normal rate, Normal rhythm, Normal tone Speech volume: Normal Thought process: Logical, Linear Thought content: Yes Intact Attention span: Capable of Focused Attention Memory description: Grossly Intact Patient reliability: Reliable Historian Intelligence estimate: Average Judgment: Fair Insight: Partial Results - Vital Signs Vital signs: Temp Pulse Resp BP Pulse Ox 98.0 F 66 14 93/58 93 03/25/17 03:35 03/25/17 03:35 03/25/17 03:35 03/25/17 03:35 03/25/17 03:35 - Labs Labs: Laboratory Last Values WBC 5.7 K/mcL (4.3-11.1) 03/25/17 06:38 RBC 4.54 M/mcL (3.82-4.97) 03/25/17 06:38 Hgb 11.9 g/dL (11.5-15.4) 03/25/17 06:38 Hct 38.5 % (35.3-44.9) 03/25/17 06:38 MCV 84.8 fL (83.0-100.0) 03/25/17 06:38 MCH 26.2 pg (28.0-33.3) L 03/25/17 06:38 MCHC 30.9 g/dL (31.6-35.5) L 03/25/17 06:38 RDW 15.2 % (11.5-14.5) H 03/25/17 06:38 Plt Count 280 K/mcL (140-400) 03/25/17 06:38 MPV 9.8 fL (9.4-12.4) 03/25/17 06:38 Immature Gran % 0.2 % (0-4) 03/25/17 06:38 Seg Neutrophils % 44.3 % 03/25/17 06:38 Lymphocytes % 28.3 % 03/25/17 06:38 Monocytes % 12.4 % 03/25/17 06:38 Eosinophils % 12.9 % 03/25/17 06:38 Basophils % 1.9 % 03/25/17 06:38 Neutrophils # 2.5 K/mcL (1.6-8.9) 03/25/17 06:38 Lymphocytes # 1.6 K/mcL (0.6-4.6) 03/25/17 06:38 Monocytes # 0.7 K/mcL (0.0-1.3) 03/25/17 06:38 Eosinophils # 0.7 K/mcL (0.0-0.6) H 03/25/17 06:38 Basophils # 0.1 K/mcL (0.0-0.2) 03/25/17 06:38 PT 10.7 Seconds (9.4-12.1) 03/23/17 11:10 INR 1.0 03/23/17 11:10 APTT 28.8 Seconds (26.0-36.0) 03/23/17 11:10 D-Dimer 729 ng/mLFEU (0-500) H 03/23/17 06:05 Carboxyhemoglobin 3.4 % (0-5) 03/23/17 08:01 Sodium 141 mEq/L (136-145) 03/25/17 06:38 Potassium 4.4 mEq/L (3.5-5.1) 03/25/17 06:38 Chloride 107 mEq/L (98-107) 03/25/17 06:38 Carbon Dioxide 27 mEq/L (23-29) 03/25/17 06:38 BUN 16 mg/dL (6-20) 03/25/17 06:38 Creatinine 0.88 mg/dL (0.60-1.20) 01 06:38 Est GFR ( Amer) > 60 (> 60) 03/25/17 06:38 Est GFR (Non-Af Amer) > 60 (> 60) 03/25/17 06:38 BUN/Creatinine Ratio 18 (6-26) 03/25/17 06:38 Glucose 78 mg/dL (70-105) 03/25/17 06:38 POC Glucose 108 (58-89) H 03/24/17 11:41 Est Mean Plasma Glucose 117 mg/dl 03/24/17 06:38 Hemoglobin A1c 5.7 % (-5.6) H 03/24/17 06:38 Calculated Osmolality 292 (280-300) 03/25/17 06:38 Calcium 9.4 mg/dL (8.6-10.3) 03/25/17 06:38 Magnesium 2.1 mg/dL (1.6-2.6) 03/24/17 06:38 Total Bilirubin 0.3 mg/dL (0.3-1.0) 03/25/17 06:38 AST 12 Units/L (13-39) L 03/25/17 06:38 ALT 12 Units/L (7-52) 03/25/17 06:38 Alkaline Phosphatase 73 Units/L (34-104) 03/25/17 06:38 Troponin I < 0.03 ng/mL (< 0.04) 03/23/17 17:53 B-Natriuretic Peptide 26 pg/mL (Less than 100) 03/23/17 06:05 Serum Total Protein 7.0 g/dL (6.4-8.9) 03/25/17 06:38 Albumin 3.8 g/dL (3.5-5.7) 03/25/17 06:38 Globulin 3.2 g/dL (2.4-3.5) 03/25/17 06:38 Albumin/Globulin Ratio 1.2 (1.1-2.2) 03/25/17 06:38 Triglycerides 152 mg/dL (< 150) H 03/24/17 06:38 Cholesterol 210 mg/dL (< 200) H 03/24/17 06:38 LDL Cholesterol, Calc 126 mg/dL (0-99) H 03/24/17 06:38 VLDL Cholesterol, Calc 30 mg/dL (< 31) 03/24/17 06:38 HDL Cholesterol 54 mg/dL (40-59) 03/24/17 06:38 Cholesterol/HDL Ratio 3.9 (0-4.9) 03/24/17 06:38 Vitamin B12 477 pg/mL (250-1100) 03/23/17 17:05 Folate 18.2 ng/mL (3.0-16.0) H 03/23/17 17:05 TSH 9.715 mcIU/mL (0.340-5.600) H 03/23/17 17:53 Free T4 0.80 ng/dl (0.70-2.00) 03/23/17 17:53 Total T3 1.12 ng/mL (0.87-1.78) 03/23/17 17:53 Urine Color Yellow (Yellow) 03/23/17 06:34 Urine Clarity Cloudy (Clear) A 03/23/17 06:34 Urine pH 7.0 pH Units (5.0-8.0) 03/23/17 06:34 Ur Specific [place] 1.009 (1.010-1.025) L 03/23/17 06:34 Urine Protein Negative mg/dL (Neg-Trace) 03/23/17 06:34 Urine Glucose (UA) Normal mg/dL (Normal) 03/23/17 06:34 Urine Ketones Negative mg/dL (Negative) 03/23/17 06:34 Urine Blood Negative (Negative) 03/23/17 06:34 Urine Nitrite Negative (Negative) 03/23/17 06:34 Urine Bilirubin Negative (Negative) 03/23/17 06:34 Urine Urobilinogen Normal mg/dL (Normal) 03/23/17 06:34 Ur Leukocyte Esterase Moderate (Negative) H 03/23/17 06:34 Urine Microscopic RBC 0-3 per hpf (0-3) 03/23/17 06:34 Urine Microscopic WBC 15-30 per hpf (0-3) H 03/23/17 06:34 Ur Squamous Epith Cells Many per lpf (None-Few) H 03/23/17 06:34 Urine Bacteria Few per hpf (None-Few) 03/23/17 06:34 Hyaline Casts None Seen per lpf (None-Few) 03/23/17 06:34 Urine Opiates Screen Negative ng/mL (Cmdurp=169) 03/23/17 06:34 Ur Barbiturates Screen Negative ng/mL (Kcgnxt=390) 03/23/17 06:34 Ur Phencyclidine Scrn Negative ng/mL (Cutoff=25) 03/23/17 06:34 Ur Amphetamines Screen Negative ng/mL (Umvdje=0655) 03/23/17 06:34 U Benzodiazepines Scrn Negative ng/mL (Zdifgu=957) 03/23/17 06:34 Urine Cocaine Screen Negative ng/mL (Cutoff= 300) 03/23/17 06:34 U Marijuana (THC) Screen Negative ng/mL (Cutoff = 50) 03/23/17 06:34 Ethyl Alcohol < 10 mg/dL (0-10) 03/23/17 08:01 T.pallidum Ab Interpret Negative (NEGATIVE) 03/23/17 17:05 - Impressions Impressions Brain MRI 03/23/17 11:20 IMPRESSION: Minimal chronic small vessel ischemic changes. No acute brain parenchymal abnormality. D/ / 03/23/2017 13:44:33 Parris Montana MD / patric Interpreting Provider: Parris Montana MD Consult Discharge Plan - Plan Instructions: Lorazepam (By mouth), Sertraline (By mouth), Atorvastatin (By mouth), Depression (DC), Anxiety (DC) Additional Instructions: Take your medications as directed. Return to the ER as needed for any other problems or concerns or if your symptoms return or worsen. Return to your normal activities as tolerated Follow up with your PCP in the next 7-10 days for a recheck and for a referral to the counseling center. Referrals: Suzanne Vincent, [employer] / [employer]NER [Primary Care Provider] - Prescriptions: Atorvastatin [Lipitor] 10 mg PO HS #30 tablet LORazepam [Ativan] 0.5 mg PO BID PRN #8 tablet PRN Reason: Anxiety Sertraline [Zoloft] 50 mg PO HS #30 tablet
[2017-03-25] MEDS ORDERED: *HR* LORazepam 0.5 MG TABLET PO ONE ×2 (12:00)
[2017-03-25 12:08] VITALS: BP 114/81
--- NOTE | 2017-03-25 12:20 | Discharge Summary ---
Date of Encounter: 03/25/17 Time of Encounter: 08:30 - Discharge Diagnosis (1) Syncope Priority: Primary Status: Suspected Comments: Patient found on floor at work yesterday prior to arrival. She was confused. The patient has no recollection of events preceding. Her said that she takes that her sister saying she was having chest pain. 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 She says she remembers having an intense pain mid occiput and then remembers being here. On arrival to the emergency department patient was unable to name her family or where she was. As today has progressed, she has become more aware and is recalling more events from yesterday. Suspect episode has more of a mental health component than a medical component. Psychiatry has been consulted. I appreciate his consultation and recommendations. Patient's TSH is mildly elevated at 9.175, neurology has ordered labs to evaluate for the presence of Tatyana's encephalitis. The labs are send out test and will not be available for several days. Pt should recheck TSH with PCP in [address] was negative, had MRI was negative. Urinalysis was negative, chest x- ray was negative. Patient had an EEG that was negative. Orthostatic VS are negative. CTA head and neck completed to assess for vascular occlusion Head CT 03/23/17 06:13 IMPRESSION: No acute intracranial abnormality. D/ / 03/23/2017 07:47:34 Surya Rodriguez MD / bcasusanne Interpreting Provider: Surya Rodriguez MD Echocardiogram 03/23/17 10:56 Impressions: LVEF 60-65%. Normal LV chamber size, wall thickness and function. Mild left ventricular diastolic dysfunction. Normal right ventricular structure and function. No significant valvular dysfunction. No evidence of pulmonary hypertension. Left Ventricular Wall Motion: Rest Echo Findings All wall segments showed normal motion. Brain MRI 03/23/17 11:20 IMPRESSION: Minimal chronic small vessel ischemic changes. No acute brain parenchymal abnormality. D/ / 03/23/2017 13:44:33 Parris Montana MD / patric Interpreting Provider: Parris Montana MD vital signs are negative. Her labs and vitals have remained stable throughout the visit. Patient reports history of depression over the last year and was recently taken off antidepressant medications. Qualifiers: Syncope type: unspecified Qualified Code(s): R55 - Syncope and collapse (2) Depression Priority: Secondary Status: Acute Comments: Major Depression. Patient has been on antidepressants twice in the last year. Per her request, she was recently taken off antidepressants by her primary care provider. Per psychiatry, she failed a drug test and felt that SSRI was the cause and stopped taking it. Patient has history of breast cancer. Her brother and sister both due to cancer last year within a month of each other. Her mother also within a month of them, also. reports the patient had become more depressed around the holidays due to him being gone a lot and her mother not being here for Doe. Patient verbalized to me that she has had thoughts of harming herself in the past, she does feel helpless and hopeless. She states she has no plan and would not be able to harm herself due to her children and her . Pt has been seen by psychiatry. I appreciate his consultation and recommendations. Zoloft 50mg po daily and Ativan 0.5mg po bid prn have been started per his recommendation. Pt will also be referred to [facility]. Sitter discontinued. Qualifiers: Depression Type: unspecified Qualified Code(s): F32.9 - Major depressive disorder, single episode, unspecified (3) Anxiety Priority: Secondary Status: Chronic Comments: Patient appears to be more calm this a.m. Patient states that she has not been sleeping well and cannot shut her brain off since being in the hospital. Ativan 0.5 mg ordered 1 today. Psychiatry consultation completed. Pt could benefit from both SSRI and anxiolytic. (4) Interstitial lung disease Priority: Secondary Status: Chronic Comments: Per patient history. (5) Chest pain Priority: Secondary Status: Acute Comments: Patient denies chest pain now or since arrival. Echocardiogram reveals a preserved ejection fraction, mild LV DD no significant valvular dysfunction. Elevated d-dimer on arrival. Chest CTA negative for PE. BLE venous duplex normal. Troponins have been negative 3. As stated above, TSH mildly elevated. Chest x-ray negative. Cholesterol elevated at 210, triglycerides elevated 152. EKG was normal sinus rhythm. She takes no home medications. She has been started on aspirin 81 mg. I will also start her on low-dose statin. Qualifiers: Chest pain type: unspecified Qualified Code(s): R07.9 - Chest pain, unspecified (6) Elevated d-dimer Priority: Secondary Status: Acute Comments: Elevated d-dimer on arrival. Chest CTA was negative for PE. Patient denies chest pain. (7) Hx of breast cancer Priority: Secondary Status: Resolved Comments: Per patient history. Follow with primary care. (8) Amnesia Priority: Secondary Status: Resolved Comments: Plan as above. (9) DVT prophylaxis Priority: Secondary Status: Acute Comments: Patient has been ambulatory. - Discharge Medications Prescriptions: Atorvastatin [Lipitor] 10 mg PO HS #30 tablet LORazepam [Ativan] 0.5 mg PO BID PRN #8 tablet PRN Reason: Anxiety Sertraline [Zoloft] 50 mg PO HS #30 tablet Home Medications: Atorvastatin [Lipitor] 10 mg PO HS #30 tablet 03/25/17 [Rx] LORazepam [Ativan] 0.5 mg PO BID PRN #8 tablet 03/25/17 [Rx] Sertraline [Zoloft] 50 mg PO HS #30 tablet 03/25/17 [Rx] Allergies/Adverse Reactions: 3 Allergy/AdvReac Type Severity Reaction Status Date / Time nitroglycerin Allergy See Verified 12/13/16 09:33 Comments citalopram AdvReac Nausea Verified 12/13/16 09:33 prednisone AdvReac See Verified 12/13/16 09:33 Comments Procedures/tests Complete & Pending: Procedures Performed prior 72 hours Category Date Time Status CT angio neck [CT] Routine Cat Scan 03/25/17 11:23 Taken CTA Head [CT angio head] [CT] Routine Cat Scan 03/25/17 11:23 Taken MR head/brain wo/w con [MR] Stat MRI 03/23/17 11:20 Completed EV carotid duplex imaging BI Routine Y 03/23/17 10:57 Completed EV echocardiogram Routine Y 03/23/17 10:56 Completed Venous Doppler [EV venous imaging LE BI] Routine Y 03/23/17 11:45 Completed Date of admission: 03/23/17 08:43 Primary care physician: Suzanne Vincent CNP Consults: 03/23/17 10:50 Consult to [employer] [CONS] Routine Reason for SW Consult: Patient had syncopal episode at work and has long- term memory loss. Please assess patient for possible home needs for post-discharge planning. 03/23/17 10:51 Consult to Occupational Therapy [CONS] Routine Comment: Evaluate, develop and implement POC Reason for Consult: Patient had syncopal episode while at work and does not recall how or what happened. Please assess patient for ambulation strength, stability, safety, and possible home assistive needs for post-discharge planning. 03/23/17 10:52 Consult to Physical Therapy [CONS] Routine Comment: Evaluate, develop and implement POC Reason for Consult: Patient had syncopal episode while at work and does not recall how or what happened. Please assess patient for ambulation strength, stability, safety, and possible home assistive needs for post-discharge planning. 03/23/17 11:08 Consult to Neurology [CONS] Routine Consulting Provider: [facility] Reason for Consult: Patient presents with syncopal episode at work today. Witnesses state that the pt. was sitting on the floor and confused. On exam, pt. has no long-term memory intact and does not recognize her spouse, her sister, does not know birthdate, etc. Pt. also describes headache in the forefront of her skull as well as chest pain. Family denies hx of CVA, TIA, seizures, cardiac event. MRI of head/brain ordered to r/o infarct/ischemia. EEG, echo, orthostatic BPs and VS, and bilateral carotid Dopplers ordered. NIHSS scale w/neuro checks. 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 Medically stable. Found in the floor at work yesterday, confused. Pt had no recollection of event and did not recognize family. Has been seen neuro, workup continues. Labs are send out, won't be back for a few days. Imaging negative. Time Notified: 09:55 Call Completed: Yes Discharging clinician: Rebekah Feliciano Anticipated date of discharge: 03/25/17 - Patient Status Disposition: Home, Self-Care Condition: Good Functional capacity at discharge: independent ambulation Overall status at discharge: patient is back to baseline - Discharge Instructions Follow Up With: Suzanne Vincent, [employer] [Primary Care Provider] - Additional Instructions: Take your medications as directed. Return to the ER as needed for any other problems or concerns or if your symptoms return or worsen. Return to your normal activities as tolerated Follow up with your PCP in the next 7-10 days for a recheck and for a referral to the counseling center. Hospital course: Ms. Valadez is a 52 year old female with prior medical history of breast cancer , ILD, depression and anxiety who presented to the emergency department after episode of confusion chest pain, headache at work. Pt had difficulty with memory. Pt has been evaluated by psychiatry and neurology, it is recommended that she start SSRI and anxiolytic. She also will be started on ASA and statin for dyslipidemia. All imaging and testing have been negative. Pt has had send out labs drawn for Tatyana's encephalitis that have not resulted yet. She will need to follow up with PCP for evaluation of elevated TSH in about 6 weeks. All labs and vitals are stable, pt will be discharged in stable condition. - Time Spent with Patient Total time spent providing and/or coordinating discharge services: Less than 30 minutes - Constitutional Vitals: Temp Pulse Resp BP Pulse Ox 98.7 F 69 19 114/81 95 03/25/17 12:06 03/25/17 12:06 03/25/17 12:06 03/25/17 12:06 03/25/17 12:06 General appearance: Present: A&O X 3, pleasant, no acute distress, obese, answers questions appropriately - Head Head exam: Present: atraumatic, normal inspection, normocephalic - Eye Eye exam: Present: normal appearance, conjuntiva pink, sclera anicteric - Neck Neck exam general surgery: Present: supple, trachea midline. Absent: lymphadenopathy, tenderness - Respiratory Respiratory exam: Present: CTAB. Absent: accessory muscle use, rales, rhonchi, wheezes - Cardiovascular Cardiovascular exam: Present: RRR, +S1, +S2. Absent: diastolic murmur, gallop, rubs, systolic murmur - GI/Abdominal GI/Abdominal exam: Present: normal bowel sounds, soft. Absent: distended, hepatomegaly, tenderness - Extremities Exam Extremities exam: Present: normal capillary refill, normal inspection, warm, radial pulses palpable and symmetrical. Absent: calf tenderness, cyanotic, pedal edema, tenderness - Neurological Exam Neurological exam: Present: alert, oriented X3, no focal deficits, strengths equal and symetr throughout. Absent: facial droop, speech deficit - Skin Skin exam: Present: dry, intact, normal color, warm. Absent: rash
[2017-03-26 16:12] LABS: QuantiFERON Mitogen minus NIL 8.91 IU/mL
[2017-03-27 07:49] LABS: Thyroglobulin Antibody 953.9 IU/mL (0.0-4.0)
[2017-03-27 07:56] LABS: QuantiFERON NIL 0.07 IU/mL; QuantiFERON-TB Gold In-Tube NEGATIVE (Negative)
== END 2017-03-25 15:19 | disposition home or self-care (01) ==
LOC: EMEROO 05:59 → 3ANU 05:59 → 3BNU 09:41
PROVIDERS: ADMIT Pediatrics; ATTEND Registered Nurse